=== PATIENT | female | born 1970 | race Caucasian/White ===

== ENCOUNTER 2017-09-27 20:45 | Observation (INO) | payer MEDICARE, OTHER ==
[~2017-09-27] VITALS: Ht 175.3 cm; Wt 95.5 kg
[~2017-09-27 20:45] MED LIST: CEPH-460 PO; CYCL10TA PO; GABA300C5 PO; IBUP1TAB5 PO; OXYC-396 PO; PERC5TAB12 PO; TAMS5CAP PO
[2017-09-27 21:48] VITALS: BP 119/65; PULSE 88; RESP 22; TEMP 97.7; O2SAT 97
[2017-09-27] MEDS ORDERED: SODIUM CHLORIDE 0.9% FLUSH 10 ML FLUSH IV FLUSH PRN (22:45)
[2017-09-27] MEDS ORDERED: ACETAMINOPHEN 500 MG CPLT PO PRN (22:45)
[2017-09-27] MEDS ORDERED: ASPIRIN 81 MG CHEW TAB PO ONE (22:45)
[2017-09-27] MEDS: NITROGLYCERIN 2% OINT 1 GM PACKET TOPICAL SCH (23:00)
[2017-09-27] MEDS: TEMAZEPAM 15 MG CAP PO PRN (23:07)
[2017-09-27] MEDS: MORPHINE SULFATE 4 MG/ML INJ IV PUSH PRN (23:13)
[2017-09-27] MEDS: SODIUM CHLORIDE 0.9% FLUSH 10 ML FLUSH IV FLUSH PRN (23:14)
[2017-09-28] VITALS (8 sets, daily range): BP systolic 100–152; BP diastolic 59–77; PULSE 67–91; RESP 18–20; TEMP 97.7–97.9; O2SAT 95–98
[2017-09-28 03:07] LABS: CREATINE KINASE 126 U/L (26-192)
[2017-09-28 03:19] LABS: CKMB 3.2 NG/ML (0.5-3.6)
[2017-09-28] MEDS: SODIUM CHLORIDE 0.9% FLUSH 10 ML FLUSH IV FLUSH PRN ×2 (03:21→07:35)
[2017-09-28] MEDS: MORPHINE SULFATE 4 MG/ML INJ IV PUSH PRN ×4 (03:21→18:46)
[2017-09-28] MEDS: NITROGLYCERIN 2% OINT 1 GM PACKET TOPICAL SCH (04:06)
[2017-09-28] MEDS: ONDANSETRON HCL 4 MG/2 ML VIAL IV PUSH PRN (07:35)
[2017-09-28] MEDS ORDERED: NITROGLYCERIN 0.4 MG SL 25 TABS/BTL SL PRN (08:15)
[2017-09-28] MEDS: ASPIRIN 325 MG TAB PO SCH (09:00)
--- NOTE | 2017-09-28 10:24 | HHI.HP ---
HPI Primary Care Physician Primary Care Physician Past Family Social History Allergies: Coded Allergies: No Known Allergies (Unverified Allergy, Unknown, 09/27/17) Reported Medications Reported Meds & Active Scripts Active Percocet (Oxycodone-Acetaminophen) 5-325 mg Tab 1 Tab PO Q4H PRN Reported Oxycodone (Oxycodone HCl) 20 Mg Tab 20 Mg PO Q6H PRN Ibuprofen 400 Mg Tab 400 Mg PO BID Flexeril (Cyclobenzaprine HCl) 10 Mg Tab 10 Mg PO TID PRN Gabapentin 300 Mg Cap 300 Mg PO BID Active Ordered Medications Current Medications Medications (Trade) Dose Ordered Sig/Parag Route Start Time Stop Time Status Last Admin (NS Flush) 2 ml UNSCH PRN IV FLUSH 09/27/17 22:45 09/28/17 07:35 (NS Flush) 2 ml UNSCH PRN IV FLUSH 09/27/17 22:45 (Tylenol) 500 mg Q4H PRN PO 09/27/17 22:45 (Morphine Inj) 2 mg Q4H PRN IV PUSH 09/27/17 22:45 09/28/17 07:35 (Zofran Inj) 4 mg Q6H PRN IV PUSH 09/27/17 22:45 09/28/17 07:35 (Restoril) 15 mg HS PRN PO 09/27/17 22:45 09/27/17 23:07 (NS Flush) 2 ml BID IV FLUSH 09/28/17 09:00 (Nitrostat Sl) 0.4 mg Q5M PRN SL 09/28/17 08:15 (Aspirin) 325 mg DAILY PO 09/28/17 09:00 Physical Exam Vital Signs Vital Signs Date Time Temp Pulse Resp B/P (MAP) Pulse Ox O2 Delivery O2 Flow Rate FiO2 09/28/17 09:47 97.7 72 20 119/69 (86) 98 09/28/17 08:00 91 09/28/17 04:24 97.7 67 18 117/60 (79) 96 09/28/17 00:58 91 09/28/17 00:21 97.9 81 18 117/66 (83) 97 09/27/17 21:48 97.7 88 22 119/65 (83) 97 Laboratory Laboratory Tests Test 09/28/17 02:30 Total Creatine Kinase 126 Creatine Kinase MB 3.2 Troponin I LESS THAN 0.02 Caprini VTE Risk Assessment Caprini VTE Risk Assessment: No/Low Risk (score <= 1) Caprini Risk Assessment Model Point Value = 1 Point Value = 2 Point Value = 3 Point Value = 5 Age 41-60 Minor surgery BMI > 25 kg/m2 Swollen legs Varicose veins or History of unexplained or recurrent spontaneous Oral contraceptives or hormone replacement Sepsis (< 1 month) Serious lung disease, including pneumonia (< 1 month) Abnormal pulmonary function Acute myocardial infarction Congestive heart failure (< 1 month) History of inflammatory bowel disease Medical patient at bed rest Age 61-74 Arthroscopic surgery Major open surgery (> 45 min) Laparoscopic surgery (> 45 min) Malignancy Confined to bed (> 72 hours) Immobilizing plaster cast Central venous access Age >= 75 History of VTE Family history of VTE Factor V Leiden Prothrombin [id number] Lupus anticoagulant Anticardiolipin antibodies Elevated serum homocysteine Heparin-induced thrombocytopenia Other congenital or acquired thrombophilia Stroke (< 1 month) Elective arthroplasty Hip, pelvis, or leg fracture Acute spinal cord injury (< 1 month) Prophylaxis Regimen Total Risk Factor Score Risk Level Prophylaxis Regimen 0-1 Low Early ambulation 2 Moderate Order ONE of the following: *Sequential Compression Device (SCD) *Heparin 5000 units SQ BID 3-4 Higher Order ONE of the following medications: *Heparin 5000 units SQ TID *Enoxaparin/Lovenox 40 mg SQ daily (WT < 150 kg, CrCl > 30 mL/min) *Enoxaparin/Lovenox 30 mg SQ daily (WT < 150 kg, CrCl > 10-29 mL/min) *Enoxaparin/Lovenox 30 mg SQ BID (WT < 150 kg, CrCl > 30 mL/min) AND/OR *Sequential Compression Device (SCD) 5 or more Highest Order ONE of the following medications: *Heparin 5000 units SQ TID (Preferred with Epidurals) *Enoxaparin/Lovenox 40 mg SQ daily (WT < 150 kg, CrCl > 30 mL/min) *Enoxaparin/Lovenox 30 mg SQ daily (WT < 150 kg, CrCl > 10-29 mL/min) *Enoxaparin/Lovenox 30 mg SQ BID (WT < 150 kg, CrCl > 30 mL/min) AND *Sequential Compression Device (SCD) Assessment and Plan Assessment and Plan chest pain vaginal bleeding RLQ pain Vickie Garces FIXED INCOME MANAGER Sep 28, 2017 10:24
[2017-09-28] MEDS ORDERED: MORPHINE SULFATE 4 MG/ML INJ IV PUSH ONE (10:45)
--- NOTE | 2017-09-28 13:39 | EKG ---
Date Performed: 09/28/2017 Time Performed: 02:28:48 PTAGE: 47 years EKG: Sinus rhythm NORMAL ECG NO PREVIOUS TRACING DOCTOR: Barrington Hall Interpretating Date/Time 09/28/2017 13:37:34
[2017-09-28] MEDS ORDERED: CYCLOBENZAPRINE HCL 10 MG TAB PO PRN (14:15)
[2017-09-28] MEDS ORDERED: oxyCODONE/ACETAMINOPHEN 5 MG/325 MG TAB PO PRN (14:15)
--- NOTE | 2017-09-28 14:15 | HHI.HP ---
[facility] Service [place] [facility] Primary Care Physician No Primary Care Physician Admission Diagnosis Diagnoses: Chief Complaint: Chest pressure, vaginal bleeding Travel History International Travel<30 Days: No Contact w/Intl Traveler <30 Da: No Traveled to Known Affected Are: No History of Present Illness The patient is a 47-year-old female with past medical history of kidney stones and herniated disks who is presenting to the hospital with chest pressure. She says over the past couple of days she has been expressing chest tightness. She says the episodes have been frequent and denies ever having them before the night before yesterday. She describes the pressure as a squeezing sensation in her chest. She did not have any shortness of breath associated with it. She did endorse some sweating associated with it. She also complains of a stabbing sensation in the left side of her stomach. She does compare the pain to the pain she has had with kidney stones in the past. She says the pain does not radiate anywhere. She has noticed decreased urine output lately. The patient also endorses vaginal bleeding that started the day before yesterday. She says she is menopausal. She has not had vaginal bleeding before. She is currently going through a few pads a day. She has seen clots in the blood. She denies nausea, vomiting or diarrhea. She endorses a 90 pound weight loss over the past year and says that it was unintentional. Review of Systems Except as stated in HPI: all other systems reviewed are Neg Past Family Social History Past Medical History Kidney stones Herniated disks Scoliosis Neuropathy Past Surgical History Cholecystectomy Tubal ligation Allergies: Coded Allergies: No Known Allergies (Unverified Allergy, Unknown, 09/27/17) Active Ordered Medications Current Medications Medications (Trade) Dose Ordered Sig/Parag Route Start Time Stop Time Status Last Admin (NS Flush) 2 ml UNSCH PRN IV FLUSH 09/27/17 22:45 09/28/17 07:35 (Tylenol) 500 mg Q4H PRN PO 09/27/17 22:45 (Morphine Inj) 2 mg Q4H PRN IV PUSH 09/27/17 22:45 09/28/17 07:35 (Zofran Inj) 4 mg Q6H PRN IV PUSH 09/27/17 22:45 09/28/17 07:35 (Restoril) 15 mg HS PRN PO 09/27/17 22:45 09/27/17 23:07 (NS Flush) 2 ml BID IV FLUSH 09/28/17 09:00 (Nitrostat Sl) 0.4 mg Q5M PRN SL 09/28/17 08:15 (Aspirin) 325 mg DAILY PO 09/28/17 09:00 (Flexeril) 10 mg TID PRN PO 09/28/17 14:15 UNV (Neurontin) 300 mg BID PO 09/28/17 21:00 UNV (Percocet 5-325 Mg) 1 tab Q4H PRN PO 09/28/17 14:15 UNV (Percocet 10-325 Mg) 1 tab Q4H PRN PO 09/28/17 14:15 UNV Ceftriaxone Sodium 1000 mg/ Sodium Chloride 100 ml @ 200 mls/hr Q24H IV 09/28/17 14:15 UNV Family History The patient's mother has A. fib. The patient's father passed from heart failure. Social History The patient smokes 7 cigarettes daily. She does not drink or use illicit substances. She says she is currently on disability. Physical Exam Vital Signs Vital Signs Date Time Temp Pulse Resp B/P (MAP) Pulse Ox O2 Delivery O2 Flow Rate FiO2 09/28/17 09:47 97.7 72 20 119/69 (86) 98 09/28/17 08:00 91 09/28/17 04:24 97.7 67 18 117/60 (79) 96 09/28/17 00:58 91 09/28/17 00:21 97.9 81 18 117/66 (83) 97 09/27/17 21:48 97.7 88 22 119/65 (83) 97 Physical Exam GENERAL: This is a well-nourished, well-developed patient, in no apparent distress. SKIN: No rashes, ecchymoses or lesions. Cool and dry. HEAD: Atraumatic. Normocephalic. No temporal or scalp tenderness. EYES: Pupils equal round and reactive. Extraocular motions intact. No scleral icterus. No injection or drainage. ENT: Nose without bleeding, purulent drainage or septal hematoma. Throat without erythema, tonsillar hypertrophy or exudate. Uvula midline. Airway patent. NECK: Trachea midline. No JVD or lymphadenopathy. Supple, nontender, no meningeal signs. CARDIOVASCULAR: Questionable heart murmur. RESPIRATORY: Clear to auscultation. Breath sounds equal bilaterally. No wheezes , rales, or rhonchi. GASTROINTESTINAL: Tender to palpation along the left lower and upper quadrants. MUSCULOSKELETAL: Left CVA tenderness noted. Extremities without clubbing, cyanosis, or edema. No joint tenderness, effusion, or edema noted. NEUROLOGICAL: Awake and alert. Cranial nerves II through XII intact. Motor and sensory grossly within normal limits. Five out of 5 muscle strength in all muscle groups. Normal speech. PSYCH: Mood and affect appropriate. Laboratory Laboratory Tests Test 09/28/17 02:30 Total Creatine Kinase 126 Creatine Kinase MB 3.2 Troponin I LESS THAN 0.02 Caprini VTE Risk Assessment Caprini VTE Risk Assessment: Mod/High Risk (score >= 2) Caprini Risk Assessment Model Point Value = 1 Point Value = 2 Point Value = 3 Point Value = 5 Age 41-60 Minor surgery BMI > 25 kg/m2 Swollen legs Varicose veins or History of unexplained or recurrent spontaneous Oral contraceptives or hormone replacement Sepsis (< 1 month) Serious lung disease, including pneumonia (< 1 month) Abnormal pulmonary function Acute myocardial infarction Congestive heart failure (< 1 month) History of inflammatory bowel disease Medical patient at bed rest Age 61-74 Arthroscopic surgery Major open surgery (> 45 min) Laparoscopic surgery (> 45 min) Malignancy Confined to bed (> 72 hours) Immobilizing plaster cast Central venous access Age >= 75 History of VTE Family history of VTE Factor V Leiden Prothrombin [id number] Lupus anticoagulant Anticardiolipin antibodies Elevated serum homocysteine Heparin-induced thrombocytopenia Other congenital or acquired thrombophilia Stroke (< 1 month) Elective arthroplasty Hip, pelvis, or leg fracture Acute spinal cord injury (< 1 month) Prophylaxis Regimen Total Risk Factor Score Risk Level Prophylaxis Regimen 0-1 Low Early ambulation 2 Moderate Order ONE of the following: *Sequential Compression Device (SCD) *Heparin 5000 units SQ BID 3-4 Higher Order ONE of the following medications: *Heparin 5000 units SQ TID *Enoxaparin/Lovenox 40 mg SQ daily (WT < 150 kg, CrCl > 30 mL/min) *Enoxaparin/Lovenox 30 mg SQ daily (WT < 150 kg, CrCl > 10-29 mL/min) *Enoxaparin/Lovenox 30 mg SQ BID (WT < 150 kg, CrCl > 30 mL/min) AND/OR *Sequential Compression Device (SCD) 5 or more Highest Order ONE of the following medications: *Heparin 5000 units SQ TID (Preferred with Epidurals) *Enoxaparin/Lovenox 40 mg SQ daily (WT < 150 kg, CrCl > 30 mL/min) *Enoxaparin/Lovenox 30 mg SQ daily (WT < 150 kg, CrCl > 10-29 mL/min) *Enoxaparin/Lovenox 30 mg SQ BID (WT < 150 kg, CrCl > 30 mL/min) AND *Sequential Compression Device (SCD) Assessment and Plan Assessment and Plan Chest pressure New onset. EKG with normal sinus rhythm. Troponins flat 3. Heart murmur possibly noted on exam. - Telemetry. - Echocardiogram. - Consider a stress test. - Oxygen as needed. - Check lipid profile and A1c. Vaginal bleeding/ Weight loss The patient is menopausal. She has had vaginal bleeding starting the day prior to admission. She also endorses a 90 pound weight loss over the past year. She smokes so malignancy is a concern. - PRINT ROOM WORKER evaluation pending. - Smoking cessation instruction. - Follow CBC and transfuse as needed. Kidney stones/ UTI/ Abdominal pain The patient has a history of kidney stones. UA indicative of an infection. She has left CVA tenderness and her abdominal pain is similar to prior kidney stone pain. - start IV ceftriaxone. - follow urine culture. - pain control with a bowel regimen. - IVFs. Chronic pain The patient is on pain medication and muscle relaxers as an outpatient. She is currently on disability. - Continue pain medication and muscle relaxers as needed. PPx: SCDs Code Status Full Discussed Condition With Pt, Mehul Appiah DO Sep 28, 2017 14:15
--- NOTE | 2017-09-28 15:34 | PD.CONS ---
HPI Chief Complaint Vaginal bleeding Date Seen: Sep 28, 2017 (Brandi Barajas MD R2) Travel History International Travel<30 Days: No Contact w/Intl Traveler<30Days: No Known Affected Area: No (Brandi Barajas MD R2) History of Present Illness HPI Patient is a 47 y/o female with a past medical history of chronic back pain and recurrent kidney stones that was admitted to the [place] [facility] for chest pain and is reporting a chief complaint of vaginal bleeding of 2 days duration. Patient states that she began noticing blood mixed with urine in the toilet after she urinates and when she wipes. These episodes have occurred continuously for the past 2 days up to 14 times. She is also experiencing pain under her left rib cage and left flank/back tenderness. She has a history of kidney stones and she states that this episode feels like when she had kidney stones but she has never bled like this before. She denies suprapubic pain or pain in her groin. She also denies dysuria. She has no fever or chills and no nausea or vomiting. Patient states that she does not really have appetite for food and has only been eating yogurts. She intentionally decided to lose weight but lost 90 pounds in the last 4 months which is more than she anticipated. Patient states that she went through early menopause starting at age 34 and her periods stopped 4-5 years ago. She had not had any vaginal bleeding until 2 days ago. Patient also states that she has had decreased urine outputs. She does not have the urge to urinate and when she does go, very little urine comes out. (Brandi Barajas MD R2) History Past Medical History Narrative Medical Chronic back pain Chronic left neck and shoulder pain - patient was born with a dislocated shoulder, she states that her left side is smaller than her right Recurrent kidney/ureter stones Obstructive uropathy and recurrent urinary tract infections (Brandi Barajas MD R2) Obstetric History Obstetric History Menarche at age 14 with regular but prolonged and painful periods 2 full-term vaginal deliveries No history of STDs, HPV, cervical biopsies or LEEP procedures Normal smears, last Pap smear was a week ago History of oral contraceptive use until the year 1999 when she had bilateral tubal ligations (Brandi Barajas MD R2) Past Surgical History Narrative Surgical Cholecystectomy in 2007 Bilateral tubal ligation in 1999 Cystocopy and right RPG with stent insertion were performed in November 2015 (Brandi Barajas MD R2) Family History Narrative Family History No history of bleeding disorders in her family History of endometrial cancer Mother has A. fib, father had heart failure (Brandi Barajas MD R2) Social History Alcohol Use: No Tobacco Use: Yes (has smoked less than half pack per day since she was 14 years old) Substance Abuse: No (Brandi Barajas MD R2) Allergies-Medications (Allergen,Severity, Reaction): Coded Allergies: No Known Allergies (Unverified Allergy, Unknown, 09/27/17) Home Meds Active Scripts Pantoprazole (Pantoprazole) 40 Mg Tab, 40 MG PO DAILY for Stomach, #30 TAB Prov:Mehul García DO 09/30/17 Oxycodone-Acetaminophen (Percocet) 5-325 mg Tab, 1 TAB PO Q4H Y for PAIN, #20 TAB 0 Refills Prov:Miquel Troncoso MD 05/12/17 Reported Medications Oxycodone (Oxycodone) 20 Mg Tab, 20 MG PO Q6H Y for PAIN, TAB 0 Refills 09/27/17 Ibuprofen (Ibuprofen) 400 Mg Tab, 400 MG PO BID for Arthritis Pain, TAB 0 Refills 05/12/17 Cyclobenzaprine (Flexeril) 10 Mg Tab, 10 MG PO TID Y for MUSCLE SPASM, #90 TAB 0 Refills 05/12/17 Gabapentin (Gabapentin) 300 Mg Cap, 300 MG PO BID, #60 CAP 0 Refills 05/12/17 Discontinued Scripts Cephalexin (Keflex) 500 Mg Cap, 500 MG PO Q8H for Infection, #21 CAP 0 Refills Prov:Miquel Troncoso MD 05/12/17 Tamsulosin (Flomax) 0.4 Mg Cap, 0.4 MG PO HS for Manage Prostate Problems, #6 CAP 0 Refills Prov:Miquel Troncoso MD 05/12/17 Review of Systems Except as stated in HPI: all other systems reviewed are Neg General / Constitutional: Weight Loss, Other (decreased appetite), No: Fever, Chills Cardiovascular: Chest Pain or Discomfort Respiratory: Short of Breath Gastrointestinal: Abdominal Pain (left upper quadrant), No: Nausea, Vomiting, Diarrhea Genitourinary: Decreased Urinary Output, Vaginal Bleeding Skin: No Rash, Itching (in her back) (EkoBrandi MD R2) Physical Exam Vital Signs Date Time Temp Pulse Resp B/P (MAP) Pulse Ox O2 Delivery O2 Flow Rate FiO2 09/28/17 12:00 97.8 73 20 100/59 (73) 95 09/28/17 09:47 97.7 72 20 119/69 (86) 98 09/28/17 08:00 91 09/28/17 04:24 97.7 67 18 117/60 (79) 96 09/28/17 00:58 91 09/28/17 00:21 97.9 81 18 117/66 (83) 97 09/27/17 21:48 97.7 88 22 119/65 (83) 97 Narrative GENERAL: Well-nourished, well-developed patient. SKIN: Warm and dry. HEAD: Normocephalic and atraumatic. EYES: No scleral icterus. No injection or drainage. ENT: No nasal drainage noted. Mucous membranes pink. Airway patent. NECK: Supple, trachea midline. No JVD. CARDIOVASCULAR: Regular rate and rhythm RESPIRATORY: Breath sounds equal bilaterally. No accessory muscle use. ABDOMEN/GI: Abdomen soft, tender to palpation in the left upper quadrant PELVIC EXAM: Normally developed genitalia with no external lesions or eruptions. Vaginal cordova appear normal. Fresh blood observed in the vaginal vault EXTREMITIES: No cyanosis or edema. BACK: Nontender without obvious deformity. Left CVA tenderness. NEUROLOGICAL: Awake and alert. Motor and sensory grossly within normal limits. Normal speech. (Brandi Barajas MD R2) Data Data Vital Signs Reviewed: Yes Orders Orders Physician Name Changes (09/27/17 ) Sodium Chloride 0.9% Flush (Ns Flush) (09/27/17 22:45) Sodium Chloride 0.9% Flush (Ns Flush) (09/27/17 22:45) Acetaminophen (Tylenol) (09/27/17 22:45) Morphine Inj (Morphine Inj) (09/27/17 22:45) Ondansetron Inj (Zofran Inj) (09/27/17 22:45) Nitroglycerin 2% Oint (Nitroglycerin 2% (09/27/17 23:00) Aspirin Chew (Aspirin Chew) (09/27/17 22:45) Temazepam (Restoril) (09/27/17 22:45) Activity Bed Rest With Brp (09/28/17 00:36) Vital Signs (09/28/17 00:36) Bulldozer Operator / Telemetry ALEXA.QSHIFT (09/28/17 08:00) ^ Other Nursing Orders (09/28/17 00:36) ^ Other Nursing Orders (09/28/17 00:36) ^ Other Nursing Orders (09/28/17 00:36) ^ Other Nursing Orders (09/28/17 00:36) ^ Other Nursing Orders (09/28/17 00:36) ^ Saline Lock (09/28/17 00:36) Ckmb (Isoenzyme) Profile (09/28/17 02:40) Troponin I (09/28/17 02:40) CKMB (09/28/17 02:30) CKMB% (09/28/17 02:30) Electrocardiogram (09/28/17 02:28) Place In Observation (09/28/17 08:02) Vital Signs (Adult) Q4H (09/28/17 08:02) Cardiac Rhythm .As Directed (09/28/17 08:02) Notify Dr: Other .PRN (09/28/17 08:02) Notify Parameters (09/28/17 08:02) Resp Oxygen Nasal Cannula (09/28/17 ) Sodium Chloride 0.9% Flush (Ns Flush) (09/28/17 09:00) Nitroglycerin Sl (Nitrostat Sl) (09/28/17 08:15) Aspirin (Aspirin) (09/28/17 09:00) Vte Prophylaxis Not Indicated (09/28/17 08:02) Morphine Inj (Morphine Inj) (09/28/17 10:45) Hemoglobin (Hgb) (09/28/17 10:27) Hematocrit (Hct) (09/28/17 10:27) Consult Hospitalist (09/28/17 ) (Hub Use Only)Inp Phy Cons/Ref (09/28/17 ) Physician Name Changes (09/28/17 ) Magnesium (Mg) (09/29/17 06:00) Basic Metabolic Panel (Bmp) (09/29/17 06:00) Cbc No Diff, Includes Plts (09/29/17 06:00) Consult Gynecology (09/28/17 ) Diet Regular Basic (09/28/17 Dinner) Cyclobenzaprine (Flexeril) (09/28/17 14:15) Gabapentin (Neurontin) (09/28/17 21:00) Oxycodone-Acetamin 5-325 Mg (Percocet (09/28/17 14:15) Oxycodone-Acetamin 10-325 Mg (Percocet 1 (09/28/17 14:15) Ceftriaxone Inj (Rocephin Inj) (09/28/17 16:00) Echo 2d Comp With Doppler (09/28/17 ) (Hub Use Only)Inp Phy Cons/Ref (09/28/17 ) Docusate Sodium-Senna (Sue-Colace) (09/28/17 21:00) Us Pelvis Comp W Transvaginal (09/28/17 ) Labs Laboratory Tests Test 09/28/17 02:30 Total Creatine Kinase 126 Creatine Kinase MB 3.2 Troponin I LESS THAN 0.02 (Brandi Barajas MD R2) [facility] Medical Record Reviewed: Yes Interpretation(s) 47-year-old female presents with postmenopausal vaginal bleeding of 2 days duration in the setting of long-term smoking and 90 pound weight loss in 4 months which is highly suspicious for malignancy either of vesical or uterine origin. Also considering a vesicovaginal fistula due to her significant history of nephrolithiasis and ureterolithiasis with obstruction. There is no evidence of obstructive kidney or ureteral stones on imaging. However, she is currently being treated with Rocephin IV for a urinary tract infection. Urine cultures are pending. Plan -Speculum exam performed that confirms fresh blood in the vaginal vault -Bimanual exam did not indicate an enlarged uterus or adnexa -Hemodynamically stable: H/H within normal limits on 09/27 at 13.6/41.1 -Continue to monitor hemoglobin and hematocrit per primary team - transfuse as needed -Check TSH due to decreased appetite and weight loss -Transvaginal ultrasound to evaluate uterus and ovaries -Further recommendations pending ultrasound findings -She may need urology consultation Seen and examined with Dr. Bosch and Dr. Jones, PGY-1 Thank you for this consult (Brandi Barajas MD R2) Attending Attestation Patient seen and evaluated with resident under direct supervision, agree with assessment and plan. (Jesus Alberto Bosch MD) Scripts Pantoprazole (Pantoprazole) 40 Mg Tab 40 MG PO DAILY for Stomach, #30 TAB Prov: Mehul García DO 09/30/17 Brnadi Barajas MD R2 Sep 28, 2017 15:34 Jesus Alberto Bosch MD Oct 01, 2017 09:05
[2017-09-28] MEDS ORDERED: cefTRIAXone INJ 1,000 MG in SODIUM CHLORIDE 0.9% INJ 100 ML IV SCH (16:00)
[2017-09-28] MEDS: oxyCODONE/ACETAMINOPHEN 10 MG/325 MG TAB PO PRN ×2 (16:07→21:35)
[2017-09-28] MEDS: SODIUM CHLORIDE 0.9% FLUSH 10 ML FLUSH IV FLUSH SCH ×2 (16:08→21:34)
--- NOTE | 2017-09-28 16:25 | RADRPT ---
EXAM DATE/TIME: 09/28/2017 15:33 [facility] COMPARISON: CT ABDOMEN & PELVIS W/O CONTRAST, September 27, 2017, 15:39. INDICATIONS : Pelvic bleeding. MEDICAL HISTORY : Hernia, hiatal. Renal calculi. Arthritis. Neuropathy. Chest pain. Asthma. GERD. Herniated lumbar disc s. Panic attack. Depression. Anxiety. Tobacco use. SURGICAL HISTORY : Cholecystectomy. Tubal ligation. Multiple lithrotripsies. ENCOUNTER: Initial ACUITY: 1 day PAIN SCORE: 6/10 LOCATION: Bilateral pelvis MEASUREMENTS: UTERUS: 8.6 x 5.8 x 3.9 cm ENDOMETRIAL STRIPE: 9 mm RIGHT OVARY: Non visualized LEFT OVARY: 2.4 x 1.7 x 1.5 cm FINDINGS: UTERUS: Uterus is in a retroflexed position when imaging transvaginally through the posterior fornix. Myometr ium demonstrates no mass. Echogenic areas present within the cervix but no mass is appreciated. RIGHT OVARY: Not visualized. No adnexal mass is seen. LEFT OVARY: Left ovary contains a cyst measuring 13 mm. MISCELLANEOUS: There is trace free fluid in the posterior cul-de-sac. CONCLUSION: 1. No definite abnormality is identified to explain the abnormal bleeding. Endometrium measures 9 mm in thickness. This is normal if the patient is premenopausal. It could be abnormal if the patient is postmenopausal with abnormal bleeding. 2. Trace free fluid in the pelvis. 3. Please note that the right ovary is not visualized. Kristopher Yi MD on September 28, 2017 at 16:20 Board Certified Radiologist. This report was verified electronically.
--- NOTE | 2017-09-28 16:50 | PD.CONS ---
History & Physical H&P Chief Complaint Vaginal bleeding Date Seen: Sep 28, 2017 Travel History International Travel<30 Days: No Contact w/Intl Traveler<30Days: No Known Affected Area: No History of Present Illness HPI Patient is a 47 y/o female with a past medical history of chronic back pain and recurrent kidney stones that was admitted to the [facility] for chest pain and is reporting a chief complaint of vaginal bleeding of 2 days duration. Patient states that she began noticing blood mixed with urine in the toilet after she urinates and when she wipes. These episodes have occurred continuously for the past 2 days up to 14 times. She is also experiencing pain under her left rib cage and left flank/back tenderness. She has a history of kidney stones and she states that this episode feels like when she had kidney stones but she has never bled like this before. She denies suprapubic pain or pain in her groin. She also denies dysuria. She has no fever or chills and no nausea or vomiting. Patient states that she does not really have appetite for food and has only been eating yogurts. She intentionally decided to lose weight but lost 90 pounds in the last 4 months which is more than she anticipated. Patient states that she went through early menopause starting at age 34 and her periods stopped 4-5 years ago. She had not had any vaginal bleeding until 2 days ago. Patient also states that she has had decreased urine outputs. She does not have the urge to urinate and when she does go, very little urine comes out. History Past Medical History Narrative Medical Chronic back pain Chronic left neck and shoulder pain - patient was born with a dislocated shoulder, she states that her left side is smaller than her right Recurrent kidney/ureter stones Obstructive uropathy and recurrent urinary tract infections Obstetric History Obstetric History Menarche at age 14 with regular but prolonged and painful periods 2 full-term vaginal deliveries No history of STDs, HPV, cervical biopsies or LEEP procedures Normal smears, last Pap smear was a week ago History of oral contraceptive use until the year 1999 when she had bilateral tubal ligations Past Surgical History Narrative Surgical Cholecystectomy in 2007 Bilateral tubal ligation in 1999 Cystocopy and right RPG with stent insertion were performed in November 2015 Family History Narrative Family History No history of bleeding disorders in her family History of endometrial cancer Mother has A. fib, father had heart failure Social History Alcohol Use: No Tobacco Use: Yes (has smoked less than half pack per day since she was 14 years old) Substance Abuse: No Allergies-Medications (Allergen,Severity, Reaction): Coded Allergies: No Known Allergies (Unverified Allergy, Unknown, 09/27/17) Home Meds Active Scripts Oxycodone-Acetaminophen (Percocet) 5-325 mg Tab, 1 TAB PO Q4H Y for PAIN, #20 TAB 0 Refills Prov:Miquel Troncoso MD 05/12/17 Reported Medications Oxycodone (Oxycodone) 20 Mg Tab, 20 MG PO Q6H Y for PAIN, TAB 0 Refills 09/27/17 Ibuprofen (Ibuprofen) 400 Mg Tab, 400 MG PO BID for Arthritis Pain, TAB 0 Refills 05/12/17 Cyclobenzaprine (Flexeril) 10 Mg Tab, 10 MG PO TID Y for MUSCLE SPASM, #90 TAB 0 Refills 05/12/17 Gabapentin (Gabapentin) 300 Mg Cap, 300 MG PO BID, #60 CAP 0 Refills 05/12/17 Discontinued Scripts Cephalexin (Keflex) 500 Mg Cap, 500 MG PO Q8H for Infection, #21 CAP 0 Refills Prov:Miquel Troncoso MD 05/12/17 Tamsulosin (Flomax) 0.4 Mg Cap, 0.4 MG PO HS for Manage Prostate Problems, #6 CAP 0 Refills Prov:Miquel Troncoso MD 05/12/17 Review of Systems Except as stated in HPI: all other systems reviewed are Neg General / Constitutional: Weight Loss, Other (decreased appetite), No: Fever, Chills Cardiovascular: Chest Pain or Discomfort Respiratory: Short of Breath Gastrointestinal: Abdominal Pain (left upper quadrant), No: Nausea, Vomiting, Diarrhea Genitourinary: Decreased Urinary Output, Vaginal Bleeding Skin: No Rash, Itching (in her back) Physical Exam Vital Signs Date Time Temp Pulse Resp B/P (MAP) Pulse Ox O2 Delivery O2 Flow Rate FiO2 09/28/17 12:00 97.8 73 20 100/59 (73) 95 09/28/17 09:47 97.7 72 20 119/69 (86) 98 09/28/17 08:00 91 09/28/17 04:24 97.7 67 18 117/60 (79) 96 09/28/17 00:58 91 09/28/17 00:21 97.9 81 18 117/66 (83) 97 09/27/17 21:48 97.7 88 22 119/65 (83) 97 Narrative GENERAL: Well-nourished, well-developed patient. SKIN: Warm and dry. HEAD: Normocephalic and atraumatic. EYES: No scleral icterus. No injection or drainage. ENT: No nasal drainage noted. Mucous membranes pink. Airway patent. NECK: Supple, trachea midline. No JVD. CARDIOVASCULAR: Regular rate and rhythm RESPIRATORY: Breath sounds equal bilaterally. No accessory muscle use. ABDOMEN/GI: Abdomen soft, tender to palpation in the left upper quadrant PELVIC EXAM: Normally developed genitalia with no external lesions or eruptions. Vaginal cordova appear normal. Small amount of fresh blood observed in the vaginal vault EXTREMITIES: No cyanosis or edema. BACK: Nontender without obvious deformity. Left CVA tenderness. NEUROLOGICAL: Awake and alert. Motor and sensory grossly within normal limits. Normal speech. Data Data Vital Signs Reviewed: Yes Orders Orders Physician Name Changes (09/27/17 ) Sodium Chloride 0.9% Flush (Ns Flush) (09/27/17 22:45) Sodium Chloride 0.9% Flush (Ns Flush) (09/27/17 22:45) Acetaminophen (Tylenol) (09/27/17 22:45) Morphine Inj (Morphine Inj) (09/27/17 22:45) Ondansetron Inj (Zofran Inj) (09/27/17 22:45) Nitroglycerin 2% Oint (Nitroglycerin 2% (09/27/17 23:00) Aspirin Chew (Aspirin Chew) (09/27/17 22:45) Temazepam (Restoril) (09/27/17 22:45) Activity Bed Rest With Brp (09/28/17 00:36) Vital Signs (09/28/17 00:36) Internet Database Specialist / Telemetry ALEXA.[email or web address] (09/28/17 08:00) ^ Other Nursing Orders (09/28/17 00:36) ^ Other Nursing Orders (09/28/17 00:36) ^ Other Nursing Orders (09/28/17 00:36) ^ Other Nursing Orders (09/28/17 00:36) ^ Other Nursing Orders (09/28/17 00:36) ^ Saline Lock (09/28/17 00:36) Ckmb (Isoenzyme) Profile (09/28/17 02:40) Troponin I (09/28/17 02:40) CKMB (09/28/17 02:30) CKMB% (09/28/17 02:30) Electrocardiogram (09/28/17 02:28) Place In Observation (09/28/17 08:02) Vital Signs (Adult) Q4H (09/28/17 08:02) Cardiac Rhythm .As Directed (09/28/17 08:02) Notify Dr: Other .PRN (09/28/17 08:02) Notify Parameters (09/28/17 08:02) Resp Oxygen Nasal Cannula (09/28/17 ) Sodium Chloride 0.9% Flush (Ns Flush) (09/28/17 09:00) Nitroglycerin Sl (Nitrostat Sl) (09/28/17 08:15) Aspirin (Aspirin) (09/28/17 09:00) Vte Prophylaxis Not Indicated (09/28/17 08:02) Morphine Inj (Morphine Inj) (09/28/17 10:45) Hemoglobin (Hgb) (09/28/17 10:27) Hematocrit (Hct) (09/28/17 10:27) Consult Hospitalist (09/28/17 ) (Hub Use Only)Inp Phy Cons/Ref (09/28/17 ) Physician Name Changes (09/28/17 ) Magnesium (Mg) (09/29/17 06:00) Basic Metabolic Panel (Bmp) (09/29/17 06:00) Cbc No Diff, Includes Plts (09/29/17 06:00) Consult Gynecology (09/28/17 ) Diet Regular Basic (09/28/17 Dinner) Cyclobenzaprine (Flexeril) (09/28/17 14:15) Gabapentin (Neurontin) (09/28/17 21:00) Oxycodone-Acetamin 5-325 Mg (Percocet (09/28/17 14:15) Oxycodone-Acetamin 10-325 Mg (Percocet 1 (09/28/17 14:15) Ceftriaxone Inj (Rocephin Inj) (09/28/17 16:00) Echo 2d Comp With Doppler (09/28/17 ) (Hub Use Only)Inp Phy Cons/Ref (09/28/17 ) Docusate Sodium-Senna (Sue-Colace) (09/28/17 21:00) Us Pelvis Comp W Transvaginal (09/28/17 ) Labs Laboratory Tests Test 09/28/17 02:30 Total Creatine Kinase 126 Creatine Kinase MB 3.2 Troponin I LESS THAN 0.02 MDM Medical Record Reviewed: Yes Interpretation(s) 47-year-old female presents with postmenopausal vaginal bleeding of 2 days duration in the setting of long-term smoking and 90 pound weight loss in 4 months which is highly suspicious for malignancy either of vesical or uterine origin. However, CT abdomen/pelvis performed on 09/27/17 showed reproductive organs that are within normal limits which is reassuring. A vesicovaginal fistula is in the differential due to her significant history of nephrolithiasis and ureterolithiasis with obstruction, although there is no evidence of obstructive kidney or ureteral stones on recent imaging. She is currently being treated with Rocephin IV for a urinary tract infection. Urine cultures are pending. Plan -Speculum exam performed that confirms fresh blood in the vaginal vault but small amount which is not hemodynamically significant: H/H within normal limits on 09/27 at 13.6/41.1 -Bimanual exam did not indicate an enlarged uterus or adnexa -Continue to monitor hemoglobin and hematocrit per primary team - transfuse as needed -Check TSH due to decreased appetite and weight loss -Transvaginal ultrasound to evaluate uterus and ovaries -Recommend outpatient follow up with primary care physician for endometrial biopsy -Also recommend out-patient follow-up with urology Seen and examined with Dr. Bosch and Dr. Jones, PGY-1 Thank you for this consult. OBGYN will sign off. Re-consult with further questions Brandi Barajas MD R2 Sep 28, 2017 16:50
[2017-09-28 17:24] LABS: HEMATOCRIT 39.7 % (35.0-46.0)
[2017-09-28] MEDS: DOCUSATE SODIUM 50 MG/SENNA 8.6 MG TAB PO SCH (21:36)
[2017-09-28] MEDS: GABAPENTIN 300 MG CAP PO SCH (21:36)
[2017-09-29] VITALS (10 sets, daily range): BP systolic 109–137; BP diastolic 60–88; PULSE 65–87; RESP 16–18; TEMP 97.9–98.9; O2SAT 95–100
[2017-09-29] MEDS: MORPHINE SULFATE 4 MG/ML INJ IV PUSH PRN ×4 (00:03→18:44)
[2017-09-29] MEDS: oxyCODONE/ACETAMINOPHEN 10 MG/325 MG TAB PO PRN ×4 (06:34→21:40)
[2017-09-29 07:52] LABS: HEMATOCRIT 39.1 % (35.0-46.0); MEAN CELL VOLUME 88.3 FL (80.0-100.0); MEAN CORPUSCULAR HEMOGLOBIN 30.2 PG (27.0-34.0); MEAN CORPUSCULAR HGB CONC 34.2 % (32.0-36.0); PLATELET COUNT 188 TH/MM3 (150-450); RED BLOOD COUNT 4.43 MIL/MM3 (4.00-5.30); RED CELL DISTRIBUTION WIDTH 13.4 % (11.6-17.2); REVIEW FLAG FINAL; WHITE BLOOD COUNT 5.6 TH/MM3 (4.0-11.0)
[2017-09-29 08:18] LABS: BICARBONATE 25.8 MEQ/L (21.0-32.0); MAGNESIUM 1.8 MG/DL (1.5-2.5)
[2017-09-29] MEDS: DOCUSATE SODIUM 50 MG/SENNA 8.6 MG TAB PO SCH ×2 (08:36→21:40)
[2017-09-29] MEDS: ASPIRIN 325 MG TAB PO SCH (08:36)
[2017-09-29] MEDS: GABAPENTIN 300 MG CAP PO SCH ×2 (08:36→21:40)
[2017-09-29] MEDS: SODIUM CHLORIDE 0.9% FLUSH 10 ML FLUSH IV FLUSH SCH ×2 (08:36→21:40)
--- NOTE | 2017-09-29 13:01 | HHI.PR ---
Subjective Remarks The patient continued to complain of left sided abdominal/flank pain. She also had persistent chest tightness. She does not have much of an appetite. Still complains of vaginal bleeding. Her sister was at the bedside. Objective Vitals Vital Signs Date Time Temp Pulse Resp B/P (MAP) Pulse Ox O2 Delivery O2 Flow Rate FiO2 09/29/17 11:36 98.0 74 18 109/70 (83) 96 09/29/17 08:00 80 09/29/17 07:55 98.1 77 18 137/82 (100) 98 09/29/17 04:14 98.2 65 17 115/71 (86) 95 09/29/17 04:06 65 09/29/17 00:04 98.4 69 17 117/60 (79) 97 09/28/17 22:00 71 09/28/17 16:00 97.9 74 20 152/77 (102) 98 I/O 09/28/17 09/28/17 09/28/17 09/29/17 09/29/17 09/29/17 07:00 15:00 23:00 07:00 15:00 23:00 Intake Total 1480 ml 400 ml Output Total 900 ml Balance 580 ml 400 ml Intake Oral 1280 ml 400 ml IV Total 200 ml Output Urine Total 900 ml # Voids 1 3 2 # Sanitary Pads 1 Pads Result Diagram: 09/29/17 0645 09/29/17 0645 Imaging Last Impressions Pelvis Ultrasound 09/28/17 0000 Signed Impressions: Service Date/Time: Thursday, September 28, 2017 15:33 - CONCLUSION: 1. No definite abnormality is identified to explain the abnormal bleeding. Endometrium measures 9 mm in thickness. This is normal if the patient is premenopausal. It could be abnormal if the patient is postmenopausal with abnormal bleeding. 2. Trace free fluid in the pelvis. 3. Please note that the right ovary is not visualized. Kristopher Yi MD Objective Remarks GENERAL: This is a well-nourished, well-developed patient, in no apparent distress. SKIN: No rashes, ecchymoses or lesions. Cool and dry. HEAD: Atraumatic. Normocephalic. No temporal or scalp tenderness. EYES: Pupils equal round and reactive. Extraocular motions intact. No scleral icterus. No injection or drainage. ENT: Nose without bleeding, purulent drainage or septal hematoma. Throat without erythema, tonsillar hypertrophy or exudate. Uvula midline. Airway patent. NECK: Trachea midline. No JVD or lymphadenopathy. Supple, nontender, no meningeal signs. CARDIOVASCULAR: Questionable heart murmur. RESPIRATORY: Clear to auscultation. Breath sounds equal bilaterally. No wheezes , rales, or rhonchi. GASTROINTESTINAL: Tender to palpation along the left lower and upper quadrants. MUSCULOSKELETAL: Left CVA tenderness noted. Extremities without clubbing, cyanosis, or edema. No joint tenderness, effusion, or edema noted. NEUROLOGICAL: Awake and alert. Cranial nerves II through XII intact. Motor and sensory grossly within normal limits. Five out of 5 muscle strength in all muscle groups. Normal speech. PSYCH: Mood and affect appropriate. Medications and IVs Current Medications Medications (Trade) Dose Ordered Sig/Parag Route Start Time Stop Time Status Last Admin (NS Flush) 2 ml UNSCH PRN IV FLUSH 09/27/17 22:45 09/28/17 07:35 (Tylenol) 500 mg Q4H PRN PO 09/27/17 22:45 (Morphine Inj) 2 mg Q4H PRN IV PUSH 09/27/17 22:45 09/29/17 08:33 (Zofran Inj) 4 mg Q6H PRN IV PUSH 09/27/17 22:45 09/28/17 07:35 (Restoril) 15 mg HS PRN PO 09/27/17 22:45 09/27/17 23:07 (NS Flush) 2 ml BID IV FLUSH 09/28/17 09:00 09/29/17 08:36 (Nitrostat Sl) 0.4 mg Q5M PRN SL 09/28/17 08:15 (Aspirin) 325 mg DAILY PO 09/28/17 09:00 09/29/17 08:36 (Flexeril) 10 mg TID PRN PO 09/28/17 14:15 09/28/17 16:08 (Neurontin) 300 mg BID PO 09/28/17 21:00 09/29/17 08:36 (Percocet 5-325 Mg) 1 tab Q4H PRN PO 09/28/17 14:15 (Percocet 10-325 Mg) 1 tab Q4H PRN PO 09/28/17 14:15 09/29/17 12:05 (Sue-Colace) 1 tab BID PO 09/28/17 21:00 09/29/17 08:36 A/P Assessment and Plan Chest pressure New onset. EKG with normal sinus rhythm. Troponins flat 3. Heart murmur possibly noted on exam. - Telemetry. - Echocardiogram. - Exercise stress test in the morning. - Oxygen as needed. - Check lipid profile. Vaginal bleeding/ Weight loss The patient is menopausal. She has had vaginal bleeding starting the day prior to admission. She also endorses a 90 pound weight loss over the past year. She smokes so malignancy is a concern. CERTIFIED WELLNESS PROGRAM COORDINATOR evaluation appreciated. Pelvic US without any acute findings. - Smoking cessation instruction. - Follow CBC and transfuse as needed. - outpt OBGYN follow-up. Kidney stones/ UTI/ Abdominal pain The patient has a history of kidney stones. UA indicative of an infection. She has left CVA tenderness and her abdominal pain is similar to prior kidney stone pain. Urine culture with likely contaminants. CT with multiple kidney stones. - pain control with a bowel regimen. - IVFs. - urology consult requested. Chronic pain The patient is on pain medication and muscle relaxers as an outpatient. She is currently on disability. - Continue pain medication and muscle relaxers as needed. PPx: SCDs Discharge Planning Awaiting urology evaluation and stress test Mehul García DO Sep 29, 2017 13:01
--- NOTE | 2017-09-29 15:44 | MB ---
cc: BECKY PINA DATE OF CONSULTATION: 09/29/2017. HISTORY OF PRESENT ILLNESS: Ms. Sheehan is a pleasant 47-year-old female who was admitted with some chest pain / tightness and some abdominal pain with some evidence of vaginal bleeding mixed with possible hematuria. The patient has had a long history of nephrolithiasis and has had multiple lithotripsies with stents and ureteroscopy for stone removal. She states she is having right-sided abdominal pain but did not admit to any flank pain. She does have a history of chronic back pain and had a herniated disk in the past. She denies any nausea, vomiting or fever and chills. She denies any urinary tract infections. PAST MEDICAL HISTORY: Her medical history includes: 1. History of nephrolithiasis. 2. Chronic back pain with history of herniated disc. 3. Scoliosis. 4. Neuropathy. PAST SURGICAL HISTORY: 1. Cholecystectomy. 2. Tubal ligation. 3. Lithotripsy. 4. Extracorporeal shock wave lithotripsy. ALLERGIES: SHE HAS NO KNOWN DRUG ALLERGIES. MEDICATIONS: Please refer to the chart. SOCIAL HISTORY: She smokes seven cigarettes a day. She does not drink or use drugs. FAMILY HISTORY: Noted for atrial fibrillation and heart failure. REVIEW OF SYSTEMS: She notes abdominal pain, some chest tightness, vaginal bleeding. Denies any fever or chills. Denies gait disturbances. Denies bleeding disorders. Denies any skin lesions. The remaining review of systems were reviewed and are negative. PHYSICAL EXAMINATION: VITAL SIGNS: Temperature is 98, heart rate 74, respirations 109/70. GENERAL: She is a well-developed, well-nourished 47-year-old female no acute distress. HEAD, EYES, EARS, NOSE, THROAT: Normocephalic and atraumatic. Pupils equal, round and reactive to light. Extraocular muscles intact. NECK: The neck is supple. HEART: Regular rate and rhythm. LUNGS: Clear. ABDOMEN: The abdomen is soft, nontender and nondistended. EXTREMITIES: No evidence of cyanosis, clubbing or edema. BACK: There is no costovertebral angle tenderness. There is some left-sided abdominal pain but there is no rebound or guarding. LABORATORY STUDIES: White count 5.6, hemoglobin 13.4, hematocrit 39.1, platelet count of 188,000. Sodium 139, potassium 4.0, chloride 106, carbon dioxide 25.8, BUN of 16, creatinine 0.9, glucose of 73. IMAGING STUDIES: Abdomen CT shows atrophic left kidney with bilateral nephrolithiasis. No evidence of hydronephrosis or evidence of obstruction identified. No ureteral stones are identified. Stable atrophic left kidney. ASSESSMENT: This is a 47-year-old female with history of nephrolithiasis and with bilateral nonobstructing renal calculi and an atrophic left kidney. The right kidney shows the largest stone being 6 mm in size in the right lower pole. Microhematuria noted on recent urinalysis with evidence of vaginal bleeding. RECOMMENDATIONS: 1. Recommend follow-up as an outpatient to treat her right renal calculi which is nonobstructing. 2. Will repeat the urinalysis in six weeks to determine if microhematuria is still present. 3. No intervention required at this time. Thank you for the consult and for allowing me to participate in the care of this patient. Becky BISWAS/JENNIFER /2:37 PM /3:23 PM
[2017-09-29] MEDS: PANTOPRAZOLE SOD 40 MG DELAYED RELEASE TAB PO SCH (17:07)
--- NOTE | 2017-09-29 17:34 | ECHRPT ---
Indication: Chest Pain CONCLUSIONS The left ventricular systolic function is normal with an estimated ejection fraction in the range of 60-65%. Normal left ventricular size. Wall thickness is normal. No regional wall motion abnormalities are present. Trace mitral valve regurgitation. Pulmonary arterial systolic pressure could not be estimated due to an insufficient tricuspid valve regurgitation doppler jet for measurement. BP: / HR: Rhythm: MEASUREMENTS (Male / Female) Normal Values Technical Quality: 2D ECHO LV Ejection Fraction MOD 4C 69.1 % LV Ejection Fraction 4C AL 68.4 % M-MODE LV Diastolic Diameter MM 7.8 cm 4.2 - 5.9 / 3.9 - 5.3 cm LV Systolic Diameter MM 4.9 cm LV Ejection Fraction MM Teich 64.2 % IVS Diastolic Thickness MM 1.1 cm 0.6 - 1.0 / 0.6 - 0.9 cm LVPW Diastolic Thickness MM 1.1 cm 0.6 - 1.0 / 0.6 - 0.9 cm LV Relative Wall Thickness MM 0.3 0.24 - 0.42 / 0.22 - 0.42 LV Mass Index MM 203.3 g/m 49 - 115 / 43 - 95 g/m Aortic Root Diameter MM 3.8 cm AV Cusp Separation MM 1.9 cm DOPPLER AV Peak Velocity 171.0 cm/s AV Peak Gradient 11.7 mmHg LVOT Peak Velocity 161.0 cm/s LVOT Peak Gradient 10.4 mmHg MV Area PHT 3.5 cm Mitral E Point Velocity 92.3 cm/s Mitral A Point Velocity 58.2 cm/s Mitral E to A Ratio 1.6 LV E' Lateral Velocity 11.6 cm/s Mitral E to LV E' Lateral Ratio 8.0 LV E' Septal Velocity 8.7 cm/s Mitral E to LV E' Septal Ratio 10.6 FINDINGS LEFT VENTRICLE The left ventricular systolic function is normal with an estimated ejection fraction in the range of 60-65%. Normal left ventricular size. Wall thickness is normal. No regional wall motion abnormalities are present. RIGHT VENTRICLE Normal right ventricular size and systolic function. LEFT ATRIUM The left atrial size is normal. RIGHT ATRIUM The right atrial size is normal. ATRIAL SEPTUM Normal atrial septal thickness without atrial level shunting by limited color doppler interrogation. AORTA The aortic root and proximal ascending aorta are normal in size on limited imaging. MITRAL VALVE Structurally normal mitral valve. Trace mitral valve regurgitation. AORTIC VALVE Trileaflet aortic valve. No aortic valve stenosis or regurgitation. TRICUSPID VALVE Structurally normal tricuspid valve. No tricuspid valve stenosis or regurgitation. Pulmonary arterial systolic pressure could not be estimated due to an insufficient tricuspid valve regurgitation doppler jet for measurement. PULMONARY VALVE The pulmonary valve is not well visualized. VESSELS The inferior vena cava is normal in size. PERICARDIUM No pericardial effusion. Jesus Alberto Hamilton MD, FACC (Electronically Signed) Final Date:29 September 2017 17:32
[2017-09-29 18:55] LABS: HDL CHOLESTEROL 31.3 MG/DL (40.0-60.0)
[2017-09-29] MEDS: TEMAZEPAM 15 MG CAP PO PRN (21:44)
[2017-09-30] VITALS: PULSE 72
[2017-09-30] MEDS: oxyCODONE/ACETAMINOPHEN 10 MG/325 MG TAB PO PRN ×3 (02:12→13:20)
[2017-09-30 03:44] VITALS: BP 119/72; PULSE 71; RESP 16; TEMP 98.3; O2SAT 98
[2017-09-30 04:00] VITALS: PULSE 77
[2017-09-30] MEDS: PANTOPRAZOLE SOD 40 MG DELAYED RELEASE TAB PO SCH (08:13)
[2017-09-30] MEDS: ASPIRIN 325 MG TAB PO SCH (08:13)
[2017-09-30] MEDS: DOCUSATE SODIUM 50 MG/SENNA 8.6 MG TAB PO SCH (08:13)
[2017-09-30] MEDS: SODIUM CHLORIDE 0.9% FLUSH 10 ML FLUSH IV FLUSH SCH (08:14)
[2017-09-30] MEDS: GABAPENTIN 300 MG CAP PO SCH (08:14)
[2017-09-30 08:15] VITALS: BP 106/79; PULSE 77; RESP 17; TEMP 97.3; O2SAT 99
[2017-09-30 09:00] VITALS: PULSE 74
[2017-09-30] MEDS: ONDANSETRON HCL 4 MG/2 ML VIAL IV PUSH PRN (09:10)
[2017-09-30] MEDS: MORPHINE SULFATE 4 MG/ML INJ IV PUSH PRN (09:13)
[2017-09-30 11:35] VITALS: BP 96/62; PULSE 66; RESP 16; TEMP 97.8; O2SAT 98
[2017-09-30] MEDS ORDERED: REGADENOSON INJ 0.4 MG/5 ML SYR ONE (12:06)
--- NOTE | 2017-09-30 13:16 | RADRPT ---
EXAM DATE/TIME: 09/30/2017 12:02 This report includes an Addendum and supersedes previous reports for this exam. [facility] COMPARISON: No previous studies available for comparison. INDICATIONS : Mid chest pain for one day. Angina. DOSE: 26.1 mCi Tc99m Myoview at stress. 8.7 mCi Tc99m Myoview at rest. 0.4 mg Lexiscan STRESS SYMPTOMS: Shortness of breath. EJECTION FRACTION: 68% MEDICAL HISTORY : Asthma. Nephrolithiasis. SURGICAL HISTORY : Tubal ligation. Cholecystectomy. ENCOUNTER: Initial ACUITY: 1 day PAIN SCALE: 8/10 LOCATION: Midsternal chest TECHNIQUE: The patient underwent pharmacologic stress with infusion of prescribed dose. Continuous ECG tracing was monitored during stress. Gated SPECT imaging was performed after stress and conventional SPECT i maging was performed at rest. The examination was performed on a SPECT/CT scanner, both attenuation and non-corrected datasets were reviewed. FINDINGS: DISTRIBUTION: The maximum perfused segment at stress is in the lateral wall. PERFUSION STUDY: There is a broad area of fixed perfusion deficit of the apex, anterior wall and septum. This becomes slightly larger during stress. GATED STUDY: Overall ejection fraction is within normal limits but there is focal paradoxical motion and systolic bulging of the anterior apex. CONCLUSION: 1. 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 2. Paradoxical motion and apparent focal aneurysmal bulging of the left ventricle anterior apex. Over all left ventricular ejection fraction is within normal limits. RISK CATEGORY: High Kristopher Nevarez MD on September 30, 2017 at 13:12 Board Certified Radiologist. This report was verified electronically. ADDENDUM: The examination was reviewed with the attending bench repair technician. On the non-a.c. images does not appear to be a significant change from the stress to rest images involving the anteroseptal region to indica te definite ischemic changes. Therefore, this needs to be correlated with patient's physical, clinica l exam and laboratory values. Jeyson Toth MD on September 30, 2017 at 14:58 Board Certified Radiologist. This report was verified electronically.
[2017-09-30] MEDS ORDERED: PANT40TA3 PO (15:22)
--- NOTE | 2017-09-30 15:23 | HHI.DCPOC ---
Discharge Care Plan Diagnosis: (1) Left upper quadrant abdominal pain of unknown etiology (2) Chest pressure (3) Post-menopausal bleeding (4) Kidney stones Goals to Promote Your Health * To prevent worsening of your condition and complications * To maintain your health at the optimal level Directions to Meet Your Goals Take your medications as prescribed Follow your dietary instruction Follow activity as directed Keep your appointments as scheduled Take your immunizations and boosters as scheduled If your symptoms worsen call your PCP, if no PCP go to Urgent Care Center or Emergency Room Smoking is Dangerous to Your Health. Avoid second hand smoke Call the 24-hour hour crisis hotline for domestic abuse at Mehul García DO Sep 30, 2017 15:23
--- NOTE | 2017-09-30 15:25 | HHI.DS ---
Discharge Summary Admission Date Sep 27, 2017 at 20:55 Discharge Date: Sep 30, 2017 Admitting Diagnosis (1) Left upper quadrant abdominal pain of unknown etiology ICD Code: R10.12 - Left upper quadrant pain Diagnosis: Principal (2) Chest pressure ICD Code: R07.89 - Other chest pain Diagnosis: Principal (3) Post-menopausal bleeding ICD Code: N95.0 - Postmenopausal bleeding Diagnosis: Principal (4) Kidney stones ICD Code: N20.0 - Calculus of kidney Diagnosis: Principal Status: Chronic Procedures None Brief History - From Admission The patient is a 47-year-old female with past medical history of kidney stones and herniated disks who is presenting to the hospital with chest pressure. She says over the past couple of days she has been expressing chest tightness. She says the episodes have been frequent and denies ever having them before the night before yesterday. She describes the pressure as a squeezing sensation in her chest. She did not have any shortness of breath associated with it. She did endorse some sweating associated with it. She also complains of a stabbing sensation in the left side of her stomach. She does compare the pain to the pain she has had with kidney stones in the past. She says the pain does not radiate anywhere. She has noticed decreased urine output lately. The patient also endorses vaginal bleeding that started the day before yesterday. She says she is menopausal. She has not had vaginal bleeding before. She is currently going through a few pads a day. She has seen clots in the blood. She denies nausea, vomiting or diarrhea. She endorses a 90 pound weight loss over the past year and says that it was unintentional. CBC/BMP: 09/29/17 0645 09/29/17 0645 Significant Findings Laboratory Tests Test 09/28/17 02:30 09/28/17 16:41 09/29/17 06:45 Troponin I LESS THAN 0.02 NG/ML Cholesterol Level 84 MG/DL (120-200) HDL Cholesterol 31.3 MG/DL (40.0-60.0) Random Glucose 73 MG/DL (74-106) Estimat Glomerular Filtration Rate 67 ML/MIN (>89) Imaging Last Impressions Myocardial Perfusion Scan Nuc Med 09/30/17 0000 Signed Impressions: Service Date/Time: Saturday, September 30, 2017 12:02 - CONCLUSION: 1. 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 2. Paradoxical motion and apparent focal aneurysmal bulging of the left ventricle anterior apex. Overall left ventricular ejection fraction is within normal limits. RISK CATEGORY: High Kristopher Nevarez MD ADDENDUM: The examination was reviewed with the attending neon sign installer. On the non-a.c. images does not appear to be a significant change from the stress to rest images involving the anteroseptal region to indicate definite ischemic changes. Therefore, this needs to be correlated with patient's physical, clinical exam and laboratory values. Jeyson Toth MD Pelvis Ultrasound 09/28/17 0000 Signed Impressions: Service Date/Time: Thursday, September 28, 2017 15:33 - CONCLUSION: 1. No definite abnormality is identified to explain the abnormal bleeding. Endometrium measures 9 mm in thickness. This is normal if the patient is premenopausal. It could be abnormal if the patient is postmenopausal with abnormal bleeding. 2. Trace free fluid in the pelvis. 3. Please note that the right ovary is not visualized. Kristopher Yi MD PE at Discharge GENERAL: This is a well-nourished, well-developed patient, in no apparent distress. SKIN: No rashes, ecchymoses or lesions. Cool and dry. HEAD: Atraumatic. Normocephalic. No temporal or scalp tenderness. EYES: Pupils equal round and reactive. Extraocular motions intact. No scleral icterus. No injection or drainage. ENT: Nose without bleeding, purulent drainage or septal hematoma. Throat without erythema, tonsillar hypertrophy or exudate. Uvula midline. Airway patent. NECK: Trachea midline. No JVD or lymphadenopathy. Supple, nontender, no meningeal signs. CARDIOVASCULAR: Questionable heart murmur. RESPIRATORY: Clear to auscultation. Breath sounds equal bilaterally. No wheezes , rales, or rhonchi. GASTROINTESTINAL: Tender to palpation along the left lower and upper quadrants. MUSCULOSKELETAL: Left CVA tenderness noted. Extremities without clubbing, cyanosis, or edema. No joint tenderness, effusion, or edema noted. NEUROLOGICAL: Awake and alert. Cranial nerves II through XII intact. Motor and sensory grossly within normal limits. Five out of 5 muscle strength in all muscle groups. Normal speech. PSYCH: Mood and affect appropriate. Pt update on day of discharge The patient was hoping to go home. She complained of left upper quadrant pain. She said she was still having vaginal bleeding. She said she talked with the urologist. She said she will follow-up with her [facility]. Discussed with nursing. Hospital Course Chest pressure New onset. EKG with normal sinus rhythm. Troponins flat 3. She was monitored on telemetry. Echocardiogram with normal ejection fraction. LDL was 40. Nuclear stress test was originally read as abnormal, however, upon review with radiology there was no obvious ischemia. The stress test also revealed possible focal aneurysmal bulging, however, on echocardiogram no such bulging was noted. The patient does endorse significant anxiety and will need to follow up with her primary care doctor. Vaginal bleeding/ Weight loss The patient is menopausal. She has had vaginal bleeding starting the day prior to admission. She also endorses a 90 pound weight loss over the past year. She smokes so malignancy was a concern. [facility] was consulted. Pelvic US without any acute findings except for endometrial thickness of 9 mm. She received smoking cessation instruction. Her hemoglobin was stable. She will follow up with [facility] for possible endometrial biopsy. Kidney stones/ UTI/ Abdominal pain The patient has a history of kidney stones. UA indicative of an infection. She has left CVA tenderness and her abdominal pain is similar to prior kidney stone pain. Urine culture with likely contaminants. CT with multiple kidney stones. Urology consultation appreciated. She received pain control with a bowel regimen and IVFs. She'll follow-up with urology as an outpatient. The patient was started on a PPI. Chronic pain The patient is on pain medication and muscle relaxers as an outpatient. She is currently on disability. She will continue pain medication and muscle relaxers as needed. Pt Condition on Discharge: Stable Discharge Disposition: Discharge Home Discharge Time: > 30 minutes Discharge Instructions DIET: Follow Instructions for: Heart Healthy Diet Activities you can perform: Weight Bearing as Lio Follow up Referrals: [facility] - 1 Week PCP Follow-up - 1 Week Urology - 2 Weeks New Medications: Pantoprazole (Pantoprazole) 40 Mg Tab 40 MG PO DAILY for Stomach, #30 TAB Continued Medications: Cyclobenzaprine (Flexeril) 10 Mg Tab 10 MG PO TID PRN for MUSCLE SPASM, #90 TAB 0 Refills Gabapentin (Gabapentin) 300 Mg Cap 300 MG PO BID, #60 CAP 0 Refills Ibuprofen (Ibuprofen) 400 Mg Tab 400 MG PO BID for Arthritis Pain, TAB 0 Refills Oxycodone (Oxycodone) 20 Mg Tab 20 MG PO Q6H PRN for PAIN, TAB 0 Refills Oxycodone-Acetaminophen (Percocet) 5-325 mg Tab 1 TAB PO Q4H PRN for PAIN, #20 TAB 0 Refills Mehul García DO Sep 30, 2017 15:25
[2017-09-30] MEDS ORDERED: oxyCODONE/ACETAMINOPHEN 5 MG/325 MG TAB PO ONE (15:30)
== END 2017-09-30 16:45 | disposition home or self-care (01) ==
LOC: NEDDLT 20:45 → NEPHCDU 20:55
PROVIDERS: ADMIT Hospitalist; ATTEND Hospitalist
DX: R07.89 Other chest pain (principal); N93.9 Abnormal uterine and vaginal bleeding, unspecified; N39.0 Urinary tract infection, site not specified; R10.31 Right lower quadrant pain; R00.1 Bradycardia, unspecified; M54.2 Cervicalgia; M25.519 Pain in unspecified shoulder; N95.0 Postmenopausal bleeding; N20.0 Calculus of kidney; R63.4 Abnormal weight loss; M41.9 Scoliosis, unspecified; J45.909 Unspecified asthma, uncomplicated; K21.9 Gastro-esophageal reflux disease without esophagitis; F41.9 Anxiety disorder, unspecified; G62.9 Polyneuropathy, unspecified; F32.9 Major depressive disorder, single episode, unspecified; G89.29 Other chronic pain; F17.210 Nicotine dependence, cigarettes, uncomplicated; Z79.899 Other long term (current) drug therapy; Z87.442 Personal history of urinary calculi
CPT/HCPCS: 71010; 71275; 74176; 76830; 76856; 78452; 80048; 80061; 81001; 82550; 82552; 83735; 84443; 84484; 85014; 85018; 85025; 85027; 85610; 85730; 87086; 93005; 93017; 93306; 96365; 96374; 96375; 96376; 99285; A9502; G0378; J0696; J1170; J1885; J2060; J2270; J2405; J2765; J2785; Q9967

== ENCOUNTER 2018-02-04 22:41 | Observation (INO) | payer MEDICARE, MEDICAID ==
[~2018-02-04] VITALS: Ht 172.7 cm; Wt 100.0 kg
[2018-02-04] MEDS: SODIUM CHLORIDE 0.9% FLUSH 10 ML FLUSH IV FLUSH SCH (21:00)
[~2018-02-04 22:41] MED LIST changes: +ACETAMINOPHEN 325 MG TAB PO PRN; -CEPH-460 PO; +NALOXONE HCL 0.4 MG/ML AMP IV PUSH PRN; +ONDANSETRON HCL 4 MG/2 ML VIAL IVP PRN; +PANT40TA3 PO; +SODIUM CHLORIDE 0.9% FLUSH 10 ML FLUSH IV FLUSH PRN; -TAMS5CAP PO
[2018-02-04] MEDS: SODIUM CHLOR 0.9% 1000 ML INJ 1,000 ML IV SCH (23:16)
[2018-02-04] MEDS: MORPHINE SULFATE 2 MG/ML SYRINGE IV PUSH PRN (23:32)
[2018-02-05] VITALS: BP 113/73; PULSE 75; RESP 20; TEMP 97.1; O2SAT 97
[2018-02-05] MEDS: MORPHINE SULFATE 2 MG/ML SYRINGE IV PUSH PRN ×2 (04:12→07:43)
[2018-02-05 06:55] LABS: BICARBONATE 26.6 MEQ/L (21.0-32.0); CALCIUM 9.4 MG/DL (8.5-10.1)
[2018-02-05 06:56] LABS: BASOPHIL % 0.5 % (0.0-2.0); EOSINOPHIL # 0.1 TH/MM3 (0-0.4); EOSINOPHIL % 1.1 % (0.0-4.0); HEMATOCRIT 34.5 % (35.0-46.0); HEMOGLOBIN 11.7 GM/DL (11.6-15.3); LYMPH % 24.3 % (9.0-44.0); LYMPHOCYTE # 1.5 TH/MM3 (1.0-4.8); MEAN CELL VOLUME 86.3 FL (80.0-100.0); MEAN CORPUSCULAR HEMOGLOBIN 29.3 PG (27.0-34.0); MEAN PLATELET VOLUME 9.3 FL (7.0-11.0); MONO % 7.7 % (0.0-8.0); MONOCYTE # 0.5 TH/MM3 (0-0.9); NEUT % 66.4 % (16.0-70.0); PLATELET COUNT 185 TH/MM3 (150-450); RED CELL DISTRIBUTION WIDTH 13.1 % (11.6-17.2); WHITE BLOOD COUNT 6.1 TH/MM3 (4.0-11.0)
[2018-02-05 06:59] LABS: CREATININE 1.2 MG/DL (0.50-1.00)
[2018-02-05] MEDS: SODIUM CHLORIDE 0.9% FLUSH 10 ML FLUSH IV FLUSH SCH ×2 (07:43→20:26)
[2018-02-05] MEDS: SODIUM CHLOR 0.9% 1000 ML INJ 1,000 ML IV SCH ×2 (07:43→15:59)
[2018-02-05 08:00] VITALS: BP 117/65; PULSE 72; RESP 16; TEMP 98.6; O2SAT 95
[2018-02-05] MEDS ORDERED: SODIUM CHLORIDE 0.9% INJ 50 ML ONE (08:04)
[2018-02-05] MEDS ORDERED: ceFAZolin INJ 1,000 MG VIAL ONE (08:04)
[2018-02-05] MEDS ORDERED: CHLORHEXIDINE GLUCONATE 2 % 1 PACK (2 CLOTHS) TOPICAL PRN (09:00)
[2018-02-05] MEDS ORDERED: INSULIN HUMAN REGULAR 1,000 UNITS/10 ML VIAL SQ PRN (09:00)
[2018-02-05] MEDS ORDERED: LACTATED RINGER'S 1000 ML IV PRN (09:00)
[2018-02-05] MEDS ORDERED: POVIDONE IODINE 5% (ANTISEPSIS KIT) 4 APPLICATIONS EACH NARE PRN (09:00)
[2018-02-05] MEDS ORDERED: METOPROLOL TARTRATE 25 MG TAB PO PRN (09:00)
[2018-02-05] MEDS ORDERED: SODIUM CHLORID 0.9% 500 ML IV PRN (09:00)
[2018-02-05 09:20] VITALS: PULSE 74
[2018-02-05] MEDS ORDERED: MIDAZOLAM HCL 2 MG/2 ML VIAL ONE (09:26)
--- NOTE | 2018-02-05 09:35 | MB ---
cc: Gabriel Peters DO DATE: 02/05/2018 DATE OF CONSULTATION: 02/05/2018. HISTORY OF PRESENT ILLNESS: Ms. Sheehan is a pleasant 47-year-old female with a history of stones. She had a CT scan over at [facility] demonstrating a 9 mm proximal right ureteral stone with hydronephrosis. She also had evidence of an atrophic left kidney. The patient was admitted and received pain control and was to be scheduled for cystoscopy with right double-J stent insertion. ALLERGIES: SHE HAS NO KNOWN DRUG ALLERGIES. MEDICATIONS: Refer to the chart. PAST MEDICAL HISTORY: Noted for nephrolithiasis. PAST SURGICAL HISTORY: Cholecystectomy, cystoscopy with lithotripsy and stent insertion, tubal ligation. SOCIAL HISTORY: She is a known smoker. Denies drinking or using drugs. FAMILY HISTORY: Noted for stones. REVIEW OF SYSTEMS: Note right flank pain with right abdominal pain, nausea and vomiting. Denies fever or chills. Denies gait disturbances, bleeding disorders, heat or cold intolerance. Denies skin lesions. Denies psychiatric problems. The remaining review of systems were reviewed and were negative. PHYSICAL EXAMINATION: VITAL SIGNS: She is presently afebrile. Vital signs are stable. GENERAL: She is a well-developed, well-nourished, 47-year-old female in no acute distress. HEENT: Normocephalic, atraumatic. Pupils equal, round, regular, reactive to light. Extraocular movements intact. NECK: Supple. HEART: Regular rate and rhythm. LUNGS: Clear. ABDOMEN: Soft. There is some right-sided tenderness with right CVA tenderness noted. : Normal female external genitalia. EXTREMITIES: Showing no cyanosis, clubbing, or edema. NEUROLOGIC: Cranial nerves 2-12 are intact. IMAGING STUDIES: Again, CT scan demonstrates a 9 mm proximal right ureteral stone. ASSESSMENT AND PLAN: This is a 47-year-old female with right-sided hydronephrosis due to a 9 mm proximal ureteral stone. We will plan for cystoscopy with right double-J stent insertion. Risks and benefits were discussed and she is willing to proceed. DO ZULAY Ling/KANG , 09:14 AM , 09:34 AM
--- NOTE | 2018-02-05 09:42 | MP ---
cc: Gabriel Peters DO DATE OF OPERATION: 02/05/2018 PREOPERATIVE DIAGNOSIS: 9 mm proximal right ureteral stone with hydronephrosis. POSTOPERATIVE DIAGNOSIS: 9 mm proximal right ureteral stone with hydronephrosis. PROCEDURE PERFORMED: Cystoscopy, right retrograde study and right double-J stent insertion. SURGEON: Gabriel Peters MD. ANESTHESIA: General LMA. FLUIDS: Approximately 1 liter of crystalloid. ESTIMATED BLOOD LOSS: No blood loss. DRAINS: A 6-Lithuanian, 22 cm right double-J stent. CONDITION: She tolerated the procedure well, was awoken and transferred to the recovery in stable condition. INDICATIONS: Bonny Sheehan is a 47-year-old female who presented to the [facility] with signs of a right-sided hydronephrosis with significant right flank pain due to a 9 mm proximal stone. Decision was made to bring the patient to the operating room to undergo cystoscopy and right double-J stent insertion. Risks and benefits were discussed preoperatively and the patient was willing to proceed. PROCEDURE NOTE: The patient was brought to the operating room, identified by myself as much Bonny Sheehan. She was placed in the dorsal lithotomy position, prepped and draped in the usual sterile fashion, received preprocedure antibiotics and general LMA anesthesia was administered, a 22-Lithuanian cystoscope was inserted into the bladder. Valdez-cystoscopy did not show any abnormalities. The 5-Lithuanian open-ended catheter was inserted into the right ureteral orifice and a retrograde pyelogram was performed demonstrating a large proximal stone in the proximal right ureter. The wire was able to be advanced into the collecting system and then an attempt was made to place the right double-J stent. This initially was unsuccessful due to lack of stiffness of the wire and due to her large stone. The wire and the stent was then removed and then an open-ended catheter was then inserted, again into the right ureteral orifice. An Amplatz Super Stiff wire was then passed up and beyond the stone. Once that was accomplished, I was able to pass a 22 cm, 6-Lithuanian, right double-J stent with a good curl in the kidney and in the bladder. The bladder was evacuated and she was awoken and transferred to the recovery room in stable condition. She will followup to undergo right extracorporeal shock wave lithotripsy in the future. GabrielDO ZULAY Moreno/JUAN MANUEL , 09:17 AM , 09:40 AM
[2018-02-05] MEDS ORDERED: ONDANSETRON HCL 4 MG/2 ML VIAL IV PUSH PRN (10:00)
[2018-02-05] MEDS ORDERED: MORPHINE SULFATE 2 MG/ML SYRINGE IV PRN (10:00)
[2018-02-05] MEDS ORDERED: IOHEXOL 350 MG/ML 50 ML BTL (for RAD DIAG) OTHER ONE (10:26)
[2018-02-05] MEDS: oxyCODONE/ACETAMINOPHEN 5 MG/325 MG TAB PO PRN ×2 (10:27→15:34)
[2018-02-05] MEDS: HYDROmorphone HCL PF 2 MG/ML VIAL IV PRN ×2 (11:27→14:33)
--- NOTE | 2018-02-05 11:30 | HHI.HP ---
[facility] Philip Fritz MD Admission Diagnosis Diagnoses: Chief Complaint: Kidney stone with pain Travel History International Travel<30 Days: No Contact w/Intl Traveler <30 Da: No Traveled to Known Affected Are: No History of Present Illness Patient is a 47-year-old female with history of multiple kidney stones and multiple lithotripsies. Patient did have some right-sided flank pain and had an CT and added pelvis which did show an 8-9 mm proximal right ureteral stone with hydronephrosis. Patient has atrophic left kidney. She was admitted to this hospital to see urology and did have lithotripsy with stent placement. She is seen now post procedurally and complaining of 10 out of 10 pain in the right upper quadrant after her procedure. She is ambulatory. Previously she had been taking multiple medications for pain however had discontinued this after a significant weight loss and lifestyle adjustment. Her pain has improved with morphine IV and the patient is recommended for further follow-up for pain management. Review of Systems Constitutional: DENIES: Diaphoretic episodes, Fatigue, Fever, Weight gain, Weight loss, Chills, Dizziness, Change in appetite, Night Sweats Endocrine: DENIES: Abnorml menstrual pattern, Heat/cold intolerance, Polydipsia , Polyuria, Polyphagia Eyes: DENIES: Blurred vision, Diplopia, Eye inflammation, Eye pain, Vision loss , Photosensitivity, Double Vision Ears, nose, mouth, throat: DENIES: Tinnitus, Hearing loss, Vertigo, Nasal discharge, Oral lesions, Throat pain, Hoarseness, Ear Pain, Running Nose, Epistaxis, Sinus Pain, Toothache, Odynophagia Respiratory: DENIES: Apneas, Cough, Snoring, Wheezing, Hemoptysis, Sputum production, Shortness of breath Cardiovascular: DENIES: Chest pain, Palpitations, Syncope, Dyspnea on Exertion , PND, Lower Extremity Edema, Orthopnea, Claudication Gastrointestinal: COMPLAINS OF: Abdominal pain, DENIES: Black stools, Bloody stools, Constipation, Diarrhea, Nausea, Vomiting, Difficulty Swallowing, Anorexia Genitourinary: DENIES: Abnormal vaginal bleeding, Dysmenorrhea, Dyspareunia, Sexual dysfunction, Urinary frequency, Urinary incontinence, Urgency, Hematuria , Dysuria, Nocturia, Vaginal discharge Musculoskeletal: DENIES: Joint pain, Muscle aches, Stiffness, Joint Swelling, Back pain, Neck pain Integumentary: DENIES: Abnormal pigmentation, Pruritus, Rash, Nail changes, Breast masses, Breast skin changes, Nipple discharge Hematologic/lymphatic: DENIES: Bruising, Lymphadenopathy Immunologic/allergic: DENIES: Eczema, Urticaria Neurologic: DENIES: Abnormal gait, Headache, Localized weakness, Paresthesias, Seizures, Speech Problems, Tremor, Poor Balance Psychiatric: DENIES: Anxiety, Confusion, Mood changes, Depression, Hallucinations, Agitation, Suicidal Ideation, Homicidal Ideation, Delusions Except as stated in HPI: all other systems reviewed are Neg Past Family Social History Past Medical History Renal stones Chronic pain Past Surgical History History of cholecystectomy, lithotripsy and stenting Reported Medications Reviewed in the EMR, patient denies any chronic medications Allergies: Coded Allergies: No Known Allergies (Unverified Allergy, Unknown, 02/05/18) Active Ordered Medications Reviewed in the EMR Family History Father had kidney stones and of multiple myeloma in his 80s Mother has rheumatoid arthritis Social History Patient smokes a half pack a day, lives with her family, occasional Physical Exam Vital Signs Vital Signs Date Time Temp Pulse Resp B/P (MAP) Pulse Ox O2 Delivery O2 Flow Rate FiO2 02/05/18 09:50 78 16 128/74 (92) 99 Room Air 02/05/18 09:20 74 02/05/18 09:20 97.9 74 14 128/74 (92) 99 Nasal Cannula 2 02/05/18 08:00 98.6 72 16 117/65 (82) 95 02/05/18 07:53 98.4 71 16 131/85 (100) 96 02/05/18 00:00 97.1 75 20 113/73 (86) 97 Physical Exam GENERAL: This is a well-nourished, well-developed patient, complaining of pain right upper quadrant SKIN: No rashes, ecchymoses or lesions. Cool and dry. HEAD: Atraumatic. Normocephalic. No temporal or scalp tenderness. EYES: Pupils equal round and reactive. Extraocular motions intact. No scleral icterus. No injection or drainage. ENT: Nose without bleeding, purulent drainage or septal hematoma. Throat without erythema, tonsillar hypertrophy or exudate. Uvula midline. Airway patent. NECK: Trachea midline. No JVD or lymphadenopathy. Supple, nontender, no meningeal signs. CARDIOVASCULAR: Regular rate and rhythm without murmurs, gallops, or rubs. RESPIRATORY: Clear to auscultation. Breath sounds equal bilaterally. No wheezes , rales, or rhonchi. GASTROINTESTINAL: Abdomen soft, non-tender, nondistended. No hepato-splenomegaly , or palpable masses. No guarding. MUSCULOSKELETAL: Extremities without clubbing, cyanosis, or edema. No joint tenderness, effusion, or edema noted. No calf tenderness. Negative Homans sign bilaterally. NEUROLOGICAL: Awake and alert. Cranial nerves II through XII intact. Motor and sensory grossly within normal limits. Five out of 5 muscle strength in all muscle groups. Normal speech. Laboratory Laboratory Tests Test 02/05/18 06:40 White Blood Count 6.1 Red Blood Count 4.00 Hemoglobin 11.7 Hematocrit 34.5 Mean Corpuscular Volume 86.3 Mean Corpuscular Hemoglobin 29.3 Mean Corpuscular Hemoglobin Concent 34.0 Red Cell Distribution Width 13.1 Platelet Count 185 Mean Platelet Volume 9.3 Neutrophils (%) (Auto) 66.4 Lymphocytes (%) (Auto) 24.3 Monocytes (%) (Auto) 7.7 Eosinophils (%) (Auto) 1.1 Basophils (%) (Auto) 0.5 Neutrophils # (Auto) 4.0 Lymphocytes # (Auto) 1.5 Monocytes # (Auto) 0.5 Eosinophils # (Auto) 0.1 Basophils # (Auto) 0.0 CBC Comment DIFF FINAL Differential Comment Blood Urea Nitrogen 17 Creatinine 1.20 Random Glucose 80 Calcium Level 9.4 Sodium Level 140 Potassium Level 4.1 Chloride Level 109 Carbon Dioxide Level 26.6 Anion Gap 4 Estimat Glomerular Filtration Rate 48 Result Diagram: 02/05/18 0640 02/05/[address] abdomen pelvis:. 8mm stone cluster has migrated out of the midpole collecting system of the right kidney and is now lodged at the UPJ resulting in hydronephrosis of the right kidney. Septic Shock Reassessment Septic shock perfusion: reassessment completed Assessment and Plan Problem List: (1) Kidney stones ICD Code: N20.0 - Calculus of kidney Status: Chronic Plan: Status post lithotripsy stent placement continue follow-up for fluids and pain management continue IV Dilaudid Follow-up x-ray Code Status Full code Regina Chacon MD Feb 05, 2018 11:30
[2018-02-05 12:00] VITALS: BP 125/80; PULSE 81; RESP 16; TEMP 97.5; O2SAT 97
--- NOTE | 2018-02-05 12:08 | RADRPT ---
EXAM DATE/TIME: 02/05/2018 11:32 [facility] COMPARISON: ABDOMEN KUB ONLY, December 15, 2015, 16:05. INDICATIONS : Right flank pain post cystoscopy with stent placement. MEDICAL HISTORY : Asthma. Nephrolithiasis. SURGICAL HISTORY : Tubal ligation. Cholecystectomy. ENCOUNTER: Subsequent ACUITY: 1 day PAIN SCORE: 10/10 LOCATION: Right flank FINDINGS: 2 supine frontal views of the abdomen demonstrate a right ureteral stent in place with the proximal a spect likely in the extrarenal pelvis or proximal ureter and the distal aspect overlying the urinary bladder. There is a stable 11 x 7 mm stone adjacent to the right proximal ureteral stent, likely in t he proximal ureter. Cholecystectomy clips are present. There is a nonobstructive bowel gas pattern. N o acute osseous abnormality is seen. CONCLUSION: 1. There is a stable 10 mm stone on the right side, likely within the extrarenal pelvis or proximal r ight ureter. 2. Right ureteral stent is present and the proximal aspect overlies the extrarenal pelvis and distal aspect overlies the urinary bladder. Kristopher Yi MD on February 05, 2018 at 12:04 Board Certified Radiologist. This report was verified electronically.
--- NOTE | 2018-02-05 14:52 | HHI.DCPOC ---
Discharge Care Plan Diagnosis: (1) Ureter obstruction Goals to Promote Your Health * To prevent worsening of your condition and complications * To maintain your health at the optimal level Directions to Meet Your Goals Take your medications as prescribed Follow your dietary instruction Follow activity as directed Keep your appointments as scheduled Take your immunizations and boosters as scheduled If your symptoms worsen call your PCP, if no PCP go to Urgent Care Center or Emergency Room Smoking is Dangerous to Your Health. Avoid second hand smoke Call the 24-hour hour crisis hotline for domestic abuse at Regina Chacon MD Feb 05, 2018 14:52
[2018-02-05] MEDS ORDERED: OXYC1TAB63 PO (14:53)
[2018-02-05] MEDS: REMOVE OLD PATCH T-DERMAL SCH (15:00)
[2018-02-05] MEDS: NICOTINE 7 MG/24 HR PATCH T-DERMAL SCH (15:31)
[2018-02-05 16:00] VITALS: BP 130/81; PULSE 70; RESP 16; TEMP 97.3; O2SAT 96
[2018-02-05] MEDS ORDERED: PILL SPLITTER OTHER PRN (17:15)
[2018-02-05] MEDS ORDERED: cefTRIAXone INJ 1,000 MG in SODIUM CHLORIDE 0.9% INJ 100 ML IV SCH (18:30)
[2018-02-05 20:00] VITALS: BP 163/94; PULSE 90; RESP 20; TEMP 99.3; O2SAT 95
[2018-02-05] MEDS: HYDROmorphone HCL 2 MG TAB PO PRN (22:31)
[2018-02-06] VITALS: BP 132/80; PULSE 84; RESP 20; TEMP 97.8; O2SAT 99
[2018-02-06] MEDS ORDERED: diphenhydrAMINE HCL 50 MG/ML VIAL IV PUSH ONE (01:00)
[2018-02-06] MEDS ORDERED: diphenhydrAMINE HCL 50 MG CAP PO PRN (01:00)
[2018-02-06 07:50] VITALS: BP 144/95; PULSE 80; RESP 20; TEMP 98.2; O2SAT 100
[2018-02-06] MEDS: REMOVE OLD PATCH T-DERMAL SCH (09:00)
[2018-02-06] MEDS: NICOTINE 7 MG/24 HR PATCH T-DERMAL SCH (09:01)
[2018-02-06] MEDS: SODIUM CHLORIDE 0.9% FLUSH 10 ML FLUSH IV FLUSH SCH (09:01)
[2018-02-06] MEDS: HYDROmorphone HCL 2 MG TAB PO PRN (09:01)
[2018-02-06] MEDS ORDERED: KETOROLAC TROMETHAMINE 30 MG/ML (IVP) VIAL IV PUSH ONE (10:00)
[2018-02-06] MEDS ORDERED: PROMETHAZINE HCL 25 MG TAB PO ONE (10:00)
[2018-02-06] MEDS ORDERED: AMOX500T2 PO (10:19)
--- NOTE | 2018-02-06 10:21 | HHI.DS ---
Discharge Summary Admission Date Feb 04, 2018 at 22:51 Discharge Date: Feb 06, 2018 Admitting Diagnosis (1) Kidney stones ICD Code: N20.0 - Calculus of kidney Status: Chronic Procedures Lithotripsy and stent placement for 8 mm right stone with obstruction Brief History - From Admission Patient is a 47-year-old female with history of multiple kidney stones and multiple lithotripsies. Patient did have some right-sided flank pain and had an CT and added pelvis which did show an 8-9 mm proximal right ureteral stone with hydronephrosis. Patient has atrophic left kidney. She was admitted to this hospital to see urology and did have lithotripsy with stent placement. She is seen now post procedurally and complaining of 10 out of 10 pain in the right upper quadrant after her procedure. She is ambulatory. Previously she had been taking multiple medications for pain however had discontinued this after a significant weight loss and lifestyle adjustment. Her pain has improved with morphine IV and the patient is recommended for further follow-up for pain management. CBC/BMP: 02/05/18 0640 02/05/18 0640 Significant Findings Laboratory Tests Test 02/05/18 06:40 Hematocrit 34.5 % (35.0-46.0) Creatinine 1.20 MG/DL (0.50-1.00) Chloride Level 109 MEQ/L (98-107) Anion Gap 4 MEQ/L (5-15) Estimat Glomerular Filtration Rate 48 ML/MIN (>89) Imaging Last Impressions Abdomen X-Ray 02/05/18 0000 Signed Impressions: Service Date/Time: Monday, February 05, 2018 11:32 - CONCLUSION: 1. There is a stable 10 mm stone on the right side, likely within the extrarenal pelvis or proximal right ureter. 2. Right ureteral stent is present and the proximal aspect overlies the extrarenal pelvis and distal aspect overlies the urinary bladder. Kristopher Yi MD PE at Discharge GENERAL: This is a well-nourished, well-developed patient, in no apparent distress. CARDIOVASCULAR: Regular rate and rhythm without murmurs, gallops, or rubs. RESPIRATORY: Clear to auscultation. Breath sounds equal bilaterally. No wheezes , rales, or rhonchi. GASTROINTESTINAL: Abdomen soft, non-tender, nondistended. Normal active bowel sounds MUSCULOSKELETAL: Extremities without clubbing, cyanosis, or edema. NEURO: Alert & Oriented x4 to person, place, time, situation. Moves all ext x4 Pt update on day of discharge Patient still awaiting of pain but would like to go home and continue symptom control for pain management. Hospital Course Patient seen and evaluated pain management post lithotripsy and stent placement Patient did well with IV narcotics and IV fluids She was found to have urinary tract infection and did well with antibiotics although she had some itching Pt Condition on Discharge: Good Discharge Disposition: Discharge Home Discharge Time: <= 30 minutes Discharge Instructions DIET: Follow Instructions for: As Tolerated, No Restrictions Activities you can perform: Regular-No Restrictions Follow up Referrals: Urology - 1 Week with Gabriel Peters DO New Medications: Amoxicillin-Clavulanate (Amoxicillin-Clavulanate) 500-125 mg Tab 500 MG PO TID for Infection, #10 TAB 0 Refills Oxycodone HCl/Acetaminophen (Oxycodone-Acetaminophen 5-325) 5 Mg-325 Mg Tablet 2 TAB PO Q6H PRN for PAIN SCALE 1 TO 10, #10 TAB Regina Chacon MD Feb 06, 2018 10:21
[2018-02-06 11:20] VITALS: BP 138/92; PULSE 63; RESP 20; TEMP 96.5; O2SAT 94
[2018-02-06 11:53] VITALS: RESP 18
[2018-02-13] MEDS ORDERED: CIPR250T52 PO (21:28)
[2018-02-13] MEDS ORDERED: COLA100C5 PO (21:28)
[2018-02-13] MEDS ORDERED: PERC10TA27 PO (21:28)
== END 2018-02-06 13:17 | disposition home or self-care (01) ==
LOC: PHEDDLT 22:41 → PH3B 22:51 → UNDOADMIN 22:52 → PHEDA 22:52
PROVIDERS: ADMIT Hospitalist; ATTEND Hospitalist
DX: N13.2 Hydronephrosis with renal and ureteral calculous obstruction (principal); N26.1 Atrophy of kidney (terminal); F17.210 Nicotine dependence, cigarettes, uncomplicated; N13.6 Pyonephrosis; N11.1 Chronic obstructive pyelonephritis; N39.0 Urinary tract infection, site not specified; E87.8 Other disorders of electrolyte and fluid balance, not elsewhere classified; Z16.20 Resistance to unspecified antibiotic; R79.89 Other specified abnormal findings of blood chemistry; R10.31 Right lower quadrant pain
CPT/HCPCS: 00910; 52332; 74018; 74176; 74420; 76000; 80048; 80053; 81001; 82550; 82552; 83690; 83735; 84484; 85025; 85610; 85730; 87077; 87086; 87186; 93005; 96361; 96365; 96375; 96376; 99285; C1769; C2617; G0378; J0690; J0696; J1170; J1200; J1885; J2250; J2270; J2405; J3010; J7030; Q0163; Q0169; Q9967

== ENCOUNTER → 2018-02-20 | Day surgery (SDC) | payer MEDICARE, OTHER ==
[~2018-02-20] VITALS: Ht 172.7 cm; Wt 97.3 kg
[~2018-02-20] MED LIST changes: +*MEPERIDINE 25 MG INJ VIAL PERIprocedural Use ONLY ONE; +*diphenhydrAMINE HCL 50 MG/ML VIAL PERIprocedural Use ONLY ONE; -ACETAMINOPHEN 325 MG TAB PO PRN; +AMOX500T2 PO; +ASPI81TA23 PO; +CHLORHEXIDINE GLUCONATE 2 % 1 PACK (2 CLOTHS) TOPICAL PRN; +CIPR250T52 PO; +COLA100C5 PO; -CYCL10TA PO; +DO NOT ADM ANY ANTICOAGULANT DRUGS PRN; +FAMOTIDINE 20 MG/2 ML VIAL IV PUSH ONE; +FAMOTIDINE 20 MG/2 ML VIAL ONE; -GABA300C5 PO; -IBUP1TAB5 PO; +INSULIN HUMAN REGULAR 1,000 UNITS/10 ML VIAL SQ PRN; +IOHEXOL 300 MG/ML 100 ML BTL (for Rad CT) OTHER ONE; +LACTATED RINGER'S 1000 ML IV PRN; +METOPROLOL TARTRATE 25 MG TAB PO PRN; +MORPHINE SULFATE 4 MG/ML INJ IV PUSH PRN; -NALOXONE HCL 0.4 MG/ML AMP IV PUSH PRN; +ONDANSETRON HCL 4 MG/2 ML VIAL IV PUSH PRN; -ONDANSETRON HCL 4 MG/2 ML VIAL IVP PRN; -OXYC-396 PO; +OXYC1TAB63 PO; -PANT40TA3 PO; +PERC10TA27 PO; -PERC5TAB12 PO; +POVIDONE IODINE 5% (ANTISEPSIS KIT) 4 APPLICATIONS EACH NARE PRN; +PROPOFOL 200 MG/20 ML AMP IV ONE; +SODIUM CHLORID 0.9% 500 ML IV PRN; -SODIUM CHLORIDE 0.9% FLUSH 10 ML FLUSH IV FLUSH PRN; +TIZA4CAP3 PO; +ceFAZolin 1,000 MG/NS 100 ML IV SCH; +ePHEDrine/NS 25 MG/5 ML SYRINGE IV ONE; +methylPREDNISolone SOD SUCC 125 MG/2 ML VIAL IV PUSH ONE; +methylPREDNISolone SOD SUCC 125 MG/2 ML VIAL ONE; +oxyCODONE/ACETAMINOPHEN 7.5 MG/325 MG TAB PO PRN
--- NOTE | 2018-02-20 08:19 | RADRPT ---
EXAM DATE/TIME: 02/20/2018 07:51 [place] COMPARISON: CT ABDOMEN & PELVIS W/O CONTRAST, February 13, 2018, 19:47. ABDOMEN KUB ONLY, February 05, 2018, 11:32. INDICATIONS : Pre op right lithotripsy. MEDICAL HISTORY : Hernia, hiatal. Renal calculi. Arthritis. Neuropathy. Chest pain. Asthma. GERD. Herniated lumbar disc s. Panic attack. Depression. Anxiety. Tobacco use. SURGICAL HISTORY : Cholecystectomy. Tubal ligation. Multiple lithrotripsies. ENCOUNTER: Initial ACUITY: 1 day PAIN SCORE: 0/10 LOCATION: Right flank FINDINGS: Supine view of the abdomen was performed. There is a right ureteral stent in place. The proximal asp ect of the stent appears to be in the UPJ upper ureter region. The distal aspect of the stent is in t he bladder. There is a 1 cm calcification seen adjacent to the proximal stent in the expected locatio n of the UPJ. There does appear to be a 4 mm stone projecting over the left kidney. The abdominal bow el gas pattern is normal. No abnormal masses, calcifications, or organomegaly is seen. There is dege nerative change of the lower lumbar spine. CONCLUSION: 1. 1 cm stone projecting over the right UPJ region adjacent to the right ureteral stent. 2. The proximal aspect of the right ureteral stent appears to be projecting over the UPJ upper ureter region. 3. Suspected small left stone. Kristopher Manzo MD on February 20, 2018 at 8:14 Board Certified Radiologist. This report was verified electronically.
--- NOTE | 2018-02-20 10:35 | PD.OP ---
Operative Report Date of Surgery: February 20, 2018 Preoperative Diagnosis: Right UPJ stone Postoperative Diagnosis: Same Procedure: Cystoscopy, right retrograde pyelogram, right double-J stent exchange, right extracorporeal shockwave lithotripsy Anesthesia: General LMA Surgeon: Gabriel Peters Merchant Seaman(s): None Resident Surgeon: None Operation and Findings: 47-year-old female with a history of a 1 cm right UPJ stone causing hydronephrosis. Patient was admitted approximately 2 weeks ago and underwent cystoscopy with right double-J stent insertion due to her significant right- sided hydronephrosis and a small left kidney. Decision was for patient to undergo cystoscopy with right double-J stent exchange as well as right extrapleural shockwave lithotripsy. Risk and benefits were discussed preoperatively she is willing to proceed. Patient was brought to the operating room and identified by myself as Bonny Sheehan. She was placed in the dorsal lithotomy position, prepped and draped in usual sterile fashion, received preprocedure antibiotics and general LMA anesthesia was administered. 22 [place] cystoscope was inserted into the bladder and the right ureteral stent was identified. Using the alligator grasper the stent was brought to the urethral meatus. A 0.3 sensor wire was then passed through the stent and the stent was then removed. The wire was approximately 3 cm beyond the stone. This was left in position while S wall therapy commenced. The patient then received a total of 2500 shocks up to a power level of 9. Good fragmentation of the stone was visualized under fluoroscopic imaging guidance. Once ESWL therapy completed, the cystoscope was then backloaded over the wire and a 6 Emirati 22 cm right double-J stent was placed over the wire. This time the stent was advanced further beyond the stone and in better position. The bladder was evacuated and she tolerated procedure well. She will follow-up in the office in 2 weeks and obtain a KUB x-ray prior to determine if there is any residual stone burden. She was awoken and transferred recovery room in stable condition. Gabriel Peters DO February 20, 2018 10:35
[2018-02-20 12:15] VITALS: BP 142/75; PULSE 72; RESP 18; TEMP 97.2; O2SAT 98
== END | disposition home or self-care (01) ==
LOC: HSDC 06:49
PROVIDERS: ATTEND Urology
DX: N13.2 Hydronephrosis with renal and ureteral calculous obstruction (principal); F32.9 Major depressive disorder, single episode, unspecified; F41.0 Panic disorder [episodic paroxysmal anxiety]; K21.9 Gastro-esophageal reflux disease without esophagitis; J45.909 Unspecified asthma, uncomplicated
CPT/HCPCS: 00873; 50590; 52332; 74018; C1769; C2617; J1200; J2175; J2930; J7120; Q9967

== ENCOUNTER → 2018-04-09 | Day surgery (SDC) | payer MEDICARE, OTHER ==
[~2018-04-09] VITALS: Ht 170.2 cm; Wt 91.6 kg
[~2018-04-09] MED LIST changes: -*MEPERIDINE 25 MG INJ VIAL PERIprocedural Use ONLY ONE; +*RESP: ALBUTEROL 2.5 MG/3 ML NEB (PRN) PERIprocedural Use ONLY NEB ONE; -*diphenhydrAMINE HCL 50 MG/ML VIAL PERIprocedural Use ONLY ONE; -AMOX500T2 PO; +AMPICILLIN 1 GM/NS 100 ML IV SCH; +BELLADONNA ALKALOIDS/OPIUM 60 MG SUPP RECTAL ONE; -CIPR250T52 PO; +DEXAMETHASONE SOD PHOS 4 MG/ML VIAL IV ONE; -FAMOTIDINE 20 MG/2 ML VIAL IV PUSH ONE; -FAMOTIDINE 20 MG/2 ML VIAL ONE; +FUROSEMIDE 40 MG/4 ML VIAL ONE; +GENTAMICIN INJ 240 MG in SODIUM CHLORIDE 0.9% INJ 100 ML IV SCH; +GLYCOPYRROLATE 1 MG/5 ML SYRINGE IV PUSH ONE; -INSULIN HUMAN REGULAR 1,000 UNITS/10 ML VIAL SQ PRN; -IOHEXOL 300 MG/ML 100 ML BTL (for Rad CT) OTHER ONE; +LIDOCAINE HCL 1% PF 5 ML SYRINGE OTHER ONE; +MIDAZOLAM HCL 2 MG/2 ML VIAL ONE; +MORPHINE SULFATE 4 MG/ML INJ IV PRN; -MORPHINE SULFATE 4 MG/ML INJ IV PUSH PRN; +NEOSTIGMINE 5 MG/5 ML SYRINGE IV PUSH ONE; +ONDANSETRON HCL 4 MG/2 ML VIAL IV ONE; -OXYC1TAB63 PO; +PHENYLEPH/NS 1000 MCG/10 ML SYR IV ONE; +ROCURONIUM INJ 50 MG/5 ML SYRINGE IV PUSH ONE; +SUGAMMADEX SODIUM 200 MG/2 ML VIAL IV PUSH ONE; -ceFAZolin 1,000 MG/NS 100 ML IV SCH; -methylPREDNISolone SOD SUCC 125 MG/2 ML VIAL IV PUSH ONE; -methylPREDNISolone SOD SUCC 125 MG/2 ML VIAL ONE; +oxyCODONE/ACETAMINOPHEN 5 MG/325 MG TAB PO PRN; -oxyCODONE/ACETAMINOPHEN 7.5 MG/325 MG TAB PO PRN
[2018-04-09 11:56] LABS: AUTOMATED NEUTROPHIL # 4.6 TH/MM3 (1.8-7.7); BASOPHIL % 0.5 % (0.0-2.0); EOSINOPHIL # 0.1 TH/MM3 (0-0.4); EOSINOPHIL % 1.3 % (0.0-4.0); HEMATOCRIT 29.5 % (35.0-46.0); HEMOGLOBIN 9.7 GM/DL (11.6-15.3); LYMPH % 18.8 % (9.0-44.0); LYMPHOCYTE # 1.2 TH/MM3 (1.0-4.8); MEAN CELL VOLUME 82.8 FL (80.0-100.0); MEAN CORPUSCULAR HEMOGLOBIN 27.3 PG (27.0-34.0); MEAN PLATELET VOLUME 8.6 FL (7.0-11.0); MONO % 6.7 % (0.0-8.0); MONOCYTE # 0.4 TH/MM3 (0-0.9); NEUT % 72.7 % (16.0-70.0); PLATELET COUNT 425 TH/MM3 (150-450); RED BLOOD COUNT 3.56 MIL/MM3 (4.00-5.30); RED CELL DISTRIBUTION WIDTH 14.6 % (11.6-17.2); WHITE BLOOD COUNT 6.3 TH/MM3 (4.0-11.0)
--- NOTE | 2018-04-09 13:47 | PD.OP ---
Operative Report Date of Surgery: Apr 09, 2018 Preoperative Diagnosis: Right renal and ureteral calculi with retained double-J stent Postoperative Diagnosis: Same Procedure: Cystoscopy, right ureteroscopy, laser lithotripsy, stone extraction, right retrograde pyelogram with right double-J stent exchange Anesthesia: LOUIS Surgeon: Gabriel Peters Supervisor Solder Making(s): None Resident Surgeon: None Operation and Findings: 47-year-old female with history of a 1 cm right proximal UPJ stone who underwent cystoscopy with right double-J stent insertion in the past followed by right extrapleural shockwave lithotripsy. The patient had a CT scan which demonstrated stone along the ureter as well as 2 small stones within the kidney. Decision made to bring the patient to the operating room to undergo cystoscopy with right ureteroscopy with laser lithotripsy and stone extraction with right double-J stent exchange. Risk and benefits were discussed preoperatively she is willing to proceed. Patient brought the operating room and identified by myself as Bonny Sheehan. She is placed in dorsal lithotomy position, prepped and draped in sterile fashion, received preprocedure antibiotics and general endotracheal tube anesthesia was administered. 22 Bahamian cystoscope was inserted into the bladder and the right ureteral stent was identified. Using the alligator grasper it was brought out to the urethral meatus. A 0.35 sensor wire was then passed through the stent and up into the proximal kidney. The rigid ureteroscope was then passed up the ureter and a 8 mm stone was identified in the proximal ureter. Using a 200 m laser fiber at a setting of 10 and 1000 the stone was fragmented up. The nitinol basket was then used to retrieve the residual stone fragments. Once the ureter was cleared the rigid ureteroscope was removed and then the flexible ureteroscope was then inserted. This was passed up the right ureter and into the collecting system where no residual stone fragments were identified. A right retrograde pyelogram was then performed through the scope. The scope was then removed and then the cystoscope was backloaded over the wire. A 6 Bahamian 22 cm right double-J stent was then placed over the wire with a good curl in the kidney and the bladder. The remaining string attached the stent was then taped to the symphysis pubis region. The bladder was evacuated and she was awoken and extubated and transferred recovery in stable condition. She will follow-up in the office in the A.M. to undergo stent pull. She tolerated procedure well. Gabriel Peters DO Apr 09, 2018 13:47
--- NOTE | 2018-04-09 14:42 | RADRPT ---
EXAM DATE: 04/09/2018 2:32 PM EDT AGE/SEX: 47 years / Female INDICATIONS: Stent removal, renal calculi lithotripsy, stent placement. CLINICAL DATA: This is the patient's initial encounter. Patient reports that signs and symptoms have been present for 1 day and indicates a pain score of Nonresponsive. MEDICAL/SURGICAL HISTORY: . Hernia, hiatal. Renal calculi. Arthritis. Neuropathy. Asthma. GERD. Herniated lumbar discs. . Cholecystectomy. Tubal ligation. Multiple lithotripsies COMPARISON: [facility], CT ABDOMEN & PELVIS W/O CONTRAST, 02/13/2018. . FINDINGS: Under sterile conditions and using aseptic technique positive contrast was injected into the ureter i n retrograde fashion by the ordering physician. There is hydronephrosis of the collecting system.. On the third film, there is a double-J ureteral stent in place in good position. CONCLUSION: Retrograde pyelogram examination as above. Electronically signed by: Jeyson Toth MD 04/09/2018 2:41 PM EDT
[2018-04-09 15:50] VITALS: BP 106/65; PULSE 88; RESP 16; TEMP 97.6; O2SAT 97
--- NOTE | 2018-04-16 16:16 | RADRPT ---
EXAM DATE: 04/09/2018 2:32 PM EDT AGE/SEX: 47 years / Female INDICATIONS: Stent removal, renal calculi lithotripsy, stent placement. CLINICAL DATA: This is the patient's initial encounter. Patient reports that signs and symptoms have been present for 1 day and indicates a pain score of Nonresponsive. MEDICAL/SURGICAL HISTORY: . Hernia, hiatal. Renal calculi. Arthritis. Neuropathy. Asthma. GERD. Herniated lumbar discs. . Cholecystectomy. Tubal ligation. Multiple lithotripsies COMPARISON: [facility], CT ABDOMEN & PELVIS W/O CONTRAST, 02/13/2018. . FINDINGS: Under sterile conditions and using aseptic technique positive contrast was injected into the ureter i n retrograde fashion by the ordering physician. There is hydronephrosis of the collecting system.. On the third film, there is a double-J ureteral stent in place in good position. CONCLUSION: Retrograde pyelogram examination as above. Electronically signed by: Jeyson Toth MD 04/16/2018 4:15 PM EDT
== END | disposition home or self-care (01) ==
LOC: HSDC 09:54
PROVIDERS: ATTEND Urology
DX: N20.2 Calculus of kidney with calculus of ureter (principal); J45.909 Unspecified asthma, uncomplicated; K21.9 Gastro-esophageal reflux disease without esophagitis; M19.90 Unspecified osteoarthritis, unspecified site; Z90.49 Acquired absence of other specified parts of digestive tract
CPT/HCPCS: 00918; 52356; 74420; 76000; 82365; 82370; 85025; 88300; 94664; C1769; C2617; J0290; J1100; J1580; J1940; J2250; J2270; J2370; J2405; J2710; J3010; J7120; J7613; 74450

== ENCOUNTER 2018-08-16 05:06 | Inpatient (IN) ==
[2018-08-16] MEDS ORDERED: Morphine Sulfate Inj 2 MG/ML Vial IV.PUSH PRN (11:50)
--- NOTE | 2018-08-16 11:53 | P.HP ---
History of Present Illness Primary Care Physician: Philip Fritz History of Present Illness: The patient is a 48-year-old female with past medical significant for multiple kidney stones and over 40 lithotripsies recent admission for an 9 mm proximal right ureteral stone with hydronephrosis and stent placement in January of this year. Patient is here because about an hour prior to admission started experiencing severe right flank pain and nausea. Pain is sharp, right flank, 10/10 in intensity, radiating to right lower abd quadrant/groin, pain is alleviating some after receiving pain meds. Patient reports associated nausea. Denies vomiting, diarrhea, fever, chills, constipation, dysuria, hematemesis, hematochezia, melena, hematuria, anorexia and syncope Inpatient Certification: I certify that the inpatient services were ordered in accordance with Medicare regulations governing the order. This includes certification that hospital inpatient services are reasonable and necessary and in the case of services not specified as inpatient-only under 42 CFR 419.22(n), that they are appropriately provided as inpatient services in accordance to with the 2-midnight benchmark under 43 CFR 412.3(e) Estimated Total Length of Stay (Days): 3 Plans for Post Hospital Care: Home Review of Systems All other systems reviewed negative except as stated in HPI PMFSH - History History Provided By: Patient - Medical History Medical History: Medical History (Last Reviewed 08/16/18 @ 11:57 by Lucía Cody MD) Kidney stones - Surgical History Surgical History: Surgical History (Last Reviewed 08/16/18 @ 11:57 by Lucía Cody MD) H/O lithotripsy - Family History Family History: Family History (Last Updated 08/16/18 @ 11:58 by Lucía Cody MD) Other Kidney stones - Tobacco History Second Hand Smoke Exposure: Yes Tobacco Use In Past 30 Days: Yes Smoking Status: Current every day smoker Tobacco Type: Cigarettes - Alcohol History How Often Do You Have a Drink Containing Alcohol: Monthly or less - Substance Use History Substance History: Active Abuse - Substance Use Type Marijuana Status: Active Route Used: Inhalation - Travel History Recent Travel in the [place] Within the Last 8 Weeks: Yes Recent Travel Out of the Country Within the Last 8 Weeks: No Medications and Allergies Active Medications: Active Medications Acetaminophen (Tylenol) 650 mg PO Q4H PRN PRN Reason: Temp > 100.4 Hydrocodone Bitart/Acetaminophen ([place] 5/325) 1 tab PO Q4H PRN PRN Reason: pain 2-4 Hydrocodone Bitart/Acetaminophen ([place] 10/325) 1 tab PO Q4H PRN PRN Reason: pain 5-10 Al Hydroxide/Mg Hydroxide (Milk Of Magnesia Liq) 30 ml PO Q12H PRN PRN Reason: Mild Constipation Bisacodyl (Dulcolax Supp) 10 mg RECTAL DAILY PRN PRN Reason: SEVERE CONSITIPATION Sodium Chloride (Ns Inj) 1,000 mls @ 150 mls/hr IV.CONT .Q6H40M TASIA Lactulose (Lactulose Liq) 30 ml PO DAILY PRN PRN Reason: SEVERE CONSITIPATION Morphine Sulfate (Morphine Inj) 2 mg IV.PUSH Q4H PRN PRN Reason: breakthrough pain/unable PO Ondansetron HCl (Zofran Inj) 4 mg IV.PUSH Q6H PRN PRN Reason: NAUSEA OR VOMITING Senna/Docusate Sodium (Sue-Colace) 1 tab PO BID [facility] Sennosides (Senokot) 17.2 mg PO Q12H PRN PRN Reason: Moderate Constipation Allergies Allergy/AdvReac Type Severity Reaction Status Date / Time No Known Allergies Allergy Verified 08/16/18 05:12 Home Medications Medication Instructions Recorded Confirmed Type tizanidine 2 mg PO DAILY 08/16/18 08/16/18 History Exam Vital signs: Vital Signs 08/16/18 11:49 Temperature 98.1 F Pulse Rate 67 Respiratory Rate 18 Blood Pressure 110/75 Pulse Oximetry 97 Intake & Output 08/15/18 08/16/18 08/16/18 18:59 06:59 18:59 Weight 92.986 kg Other: Weight On Admission 92.986 kg Narrative: GENERAL: Alert and oriented in mild distress due to pain. SKIN: Focused skin assessment warm/dry. HEAD: Atraumatic. Normocephalic. EYES: Pupils equal and round. No scleral icterus. No injection or drainage. ENT: No nasal bleeding or discharge. Mucous membranes pink and moist. NECK: Trachea midline. No JVD. CARDIOVASCULAR: Regular rate and rhythm. No murmur appreciated. RESPIRATORY: No accessory muscle use. Clear to auscultation. Breath sounds equal bilaterally. GASTROINTESTINAL: Abdomen soft, non-tender, nondistended. Hepatic and splenic margins not palpable. MUSCULOSKELETAL: Right CVA tenderness. No obvious deformities. No clubbing. No cyanosis. No edema. NEUROLOGICAL: Awake and alert. No obvious cranial nerve deficits. Motor grossly within normal limits. Normal speech. PSYCHIATRIC: Appropriate mood and affect; insight and judgment normal. Caprini VTE Risk Assessment Caprini VTE Risk Assessment: No/Low Risk (score <= 1) Caprini Risk Assessment Model: Point Value = 1 Point Value = 2 Point Value = 3 Point Value = 5 Age 41-60 Minor surgery BMI > 25 kg/m2 Swollen legs Varicose veins or History of unexplained or recurrent spontaneous Oral contraceptives or hormone replacement Sepsis (< 1 month) Serious lung disease, including pneumonia (< 1 month) Abnormal pulmonary function Acute myocardial infarction Congestive heart failure (< 1 month) History of inflammatory bowel disease Medical patient at bed rest Age 61-74 Arthroscopic surgery Major open surgery (> 45 min) Laparoscopic surgery (> 45 min) Malignancy Confined to bed (> 72 hours) Immobilizing plaster cast Central venous access Age >= 75 History of VTE Family history of VTE Factor V Leiden Prothrombin [id number] Lupus anticoagulant Anticardiolipin antibodies Elevated serum homocysteine Heparin-induced thrombocytopenia Other congenital or acquired thrombophilia Stroke (< 1 month) Elective arthroplasty Hip, pelvis, or leg fracture Acute spinal cord injury (< 1 month) Prophylaxis Regimen: Total Risk Factor Score Risk Level Prophylaxis Regimen 0-1 Low Early ambulation 2 Moderate Order ONE of the following: *Sequential Compression Device (SCD) *Heparin 5000 units SQ BID 3-4 Higher Order ONE of the following medications: *Heparin 5000 units SQ TID *Enoxaparin/Lovenox 40 mg SQ daily (WT < 150 kg, CrCl > 30 mL/min) *Enoxaparin/Lovenox 30 mg SQ daily (WT < 150 kg, CrCl > 10-29 mL/min) *Enoxaparin/Lovenox 30 mg SQ BID (WT < 150 kg, CrCl > 30 mL/min) AND/OR *Sequential Compression Device (SCD) 5 or more Highest Order ONE of the following medications: *Heparin 5000 units SQ TID (Preferred with Epidurals) *Enoxaparin/Lovenox 40 mg SQ daily (WT < 150 kg, CrCl > 30 mL/min) *Enoxaparin/Lovenox 30 mg SQ daily (WT < 150 kg, CrCl > 10-29 mL/min) *Enoxaparin/Lovenox 30 mg SQ BID (WT < 150 kg, CrCl > 30 mL/min) AND *Sequential Compression Device (SCD) Assessment and Plan - Plan Complicated UTI (urinary tract infection) with ureteral stone and hydronephrosis Ureteral stone with hydronephrosis DORINA (acute kidney injury) Abdomen/Pelvis CT done in [facility] reviewed shows 1. 6 mm obstructing stone in the mid to distal right ureter. There is hydronephrosis and enlargement of the right kidney, similar in severity to prior CT January 2018. 2. Stable configuration to the left kidney with atrophy and focal cortical thinning. Cultures sent in the eD [place] will follow results Start Rocephin IV abx Consult urology known to Dr Peters Pain meds per pain scale SCD/teds for DTV ppx Discussed with the patient, at bedside, nurse.
[2018-08-16] MEDS: Sod Chloride 0.9% Inj 1,000 ML IV.CONT SCH ×2 (12:45→20:10)
[2018-08-16] MEDS ORDERED: Acetaminophen 325 MG Tablet PO PRN (13:00)
[2018-08-16] MEDS ORDERED: Bisacodyl 10 MG Supp RECTAL PRN (13:00)
[2018-08-16] MEDS ORDERED: Morphine Inj 4 MG/ML Vial IV.PUSH ONE (14:24)
--- NOTE | 2018-08-16 14:31 | P.CONURO ---
History of Present Illness Service: Consult date: 08/16/18 Requesting Physician: Lucía Cody Reason for Consult: Right ureteral calculus Primary Care Provider: Philip Fritz Chief Complaint: Right flank pain History of Present Illness: 48-year-old female with history recurrent nephrolithiasis who has been under the care of my associate Dr. Peters and last treated for a right ureteral calculus back in January of this year who presents now to the emergency room with acute onset right flank pain. Patient reports that symptoms began early this morning and awoke her from sleep. Preliminary ER evaluation included a CT scan stone protocol that demonstrated marketed right hydroureteronephrosis and a 4-5 mm calculus involving the lower mid right ureter. Patient was admitted for pain control and a urology consult placed. At the time of consultation the patient reported her pain had improved but was still having symptoms. She also had associated nausea but no vomiting. Patient has been afebrile. Review of Systems All other systems reviewed negative except as stated in HPI PMFSH - History History Provided By: Patient - Medical History Medical History: Medical History (Last Reviewed 08/16/18 @ 13:34 by Minor Jerez) Kidney stones - Surgical History Surgical History: Surgical History (Last Reviewed 08/16/18 @ 13:34 by Minor Jerez) H/O lithotripsy - Family History Family History: Family History (Last Updated 08/16/18 @ 11:58 by Lucía Cody MD) Other Kidney stones - Tobacco History Second Hand Smoke Exposure: Yes Tobacco Use In Past 30 Days: Yes Smoking Status: Current every day smoker Tobacco Type: Cigarettes - Alcohol History How Often Do You Have a Drink Containing Alcohol: Monthly or less - Substance Use History Substance History: Active Abuse - Substance Use Type Marijuana Status: Active Route Used: Inhalation - Travel History Recent Travel in the [place] Within the Last 8 Weeks: Yes Recent Travel Out of the Country Within the Last 8 Weeks: No Medications and Allergies Active Medications: Active Medications Acetaminophen (Tylenol) 650 mg PO Q4H PRN PRN Reason: Temp > 100.4 Hydrocodone Bitart/Acetaminophen ([place] 5/325) 1 tab PO Q4H PRN PRN Reason: pain 2-4 Hydrocodone Bitart/Acetaminophen ([place] 10/325) 1 tab PO Q4H PRN PRN Reason: pain 5-10 Last Admin: 08/16/18 12:33 Dose: 1 tab Al Hydroxide/Mg Hydroxide (Milk Of Magnesia Liq) 30 ml PO Q12H PRN PRN Reason: Mild Constipation Bisacodyl (Dulcolax Supp) 10 mg RECTAL DAILY PRN PRN Reason: SEVERE CONSITIPATION Sodium Chloride (Ns Inj) 1,000 mls @ 150 mls/hr IV.CONT .Q6H40M TASIA Last Admin: 08/16/18 12:45 Dose: 150 mls/hr Ceftriaxone Sodium 1,000 mg/ (Sodium Chloride) 100 mls @ 200 mls/hr IV.SIG Q24H TASIA Ketorolac Tromethamine (Toradol Inj) 15 mg IV.PUSH Q6H PRN PRN Reason: if severe pain and not respond Lactulose (Lactulose Liq) 30 ml PO DAILY PRN PRN Reason: SEVERE CONSITIPATION Morphine Sulfate (Morphine Inj) 2 mg IV.PUSH Q4H PRN PRN Reason: breakthrough pain/unable PO Last Admin: 08/16/18 13:28 Dose: 2 mg Morphine Sulfate (Morphine Inj) 4 mg IV.PUSH ONCE ONE Stop: 08/16/18 14:25 Ondansetron HCl (Zofran Inj) 4 mg IV.PUSH Q6H PRN PRN Reason: NAUSEA OR VOMITING Senna/Docusate Sodium (Sue-Colace) 1 tab PO BID [place] Sennosides (Senokot) 17.2 mg PO Q12H PRN PRN Reason: Moderate Constipation Allergies Allergy/AdvReac Type Severity Reaction Status Date / Time No Known Allergies Allergy Verified 08/16/18 05:12 Home Medications Medication Instructions Recorded Confirmed Type tizanidine 2 mg PO DAILY 08/16/18 08/16/18 History Physical Exam Vital Signs - 24 hr 08/16/18 11:49 08/16/18 12:33 Temperature 98.1 F Pulse Rate 67 Respiratory Rate 18 20 Blood Pressure 110/75 Pulse Oximetry 97 Physical Exam: GENERAL: This is a well-nourished, well-developed patient, in no apparent distress. SKIN: No rashes, ecchymoses or lesions. Cool and dry. HEAD: Atraumatic. Normocephalic. No temporal or scalp tenderness. EYES: Pupils equal round and reactive. Extraocular motions intact. No scleral icterus. No injection or drainage. ENT: Nose without bleeding, purulent drainage or septal hematoma. Throat without erythema, tonsillar hypertrophy or exudate. Uvula midline. Airway patent. NECK: Trachea midline. No JVD or lymphadenopathy. Supple, nontender, no meningeal signs. CARDIOVASCULAR: Regular rate and rhythm without murmurs, gallops, or rubs. RESPIRATORY: Clear to auscultation. Breath sounds equal bilaterally. No wheezes , rales, or rhonchi. GASTROINTESTINAL: Abdomen soft, non-tender, nondistended. No hepato-splenomegaly , or palpable masses. No guarding. GENITOURINARY: No CVA tenderness, bladder not distended MUSCULOSKELETAL: Extremities without clubbing, cyanosis, or edema. No joint tenderness, effusion, or edema noted. No calf tenderness. Negative Homans sign bilaterally. NEUROLOGICAL: Awake and alert. Cranial nerves II through XII intact. Motor and sensory grossly within normal limits. Five out of 5 muscle strength in all muscle groups. Normal speech. Assessment and Plan - Assessment (1) Ureteral stone with hydronephrosis Code(s): N13.2 - Hydronephrosis with renal and ureteral calculous obstruction Status: Acute - Plan Urologic impression: 1. Obstructing 4-5 mm right mid to distal ureteral calculus 2. Right hydronephrosis related to obstructing calculus Recommendations: 1. Continue with analgesic support 2. Tamsulosin 0.4 mg by mouth daily 3. Strain all urine 4. Consider discharge home if pain well managed with oral medication
[2018-08-16] MEDS: Ketorolac Inj 30 MG/ML (IVP) Vial IV.PUSH PRN (19:29)
[2018-08-16] MEDS: Senna/Docusate Sodium 8.6/50 MG Tablet PO SCH (20:11)
[2018-08-16] MEDS: HYDROmorphone PF Inj 1 MG/ML Ampul IV.PUSH PRN (22:38)
[2018-08-17] MEDS: Sod Chloride 0.9% Inj 1,000 ML IV.CONT SCH ×5 (02:41→20:32)
[2018-08-17] MEDS: HYDROmorphone PF Inj 1 MG/ML Ampul IV.PUSH PRN ×6 (02:46→22:27)
[2018-08-17] MEDS: Senna/Docusate Sodium 8.6/50 MG Tablet PO SCH ×2 (08:12→20:32)
[2018-08-17 09:19] LABS: Baso % (Auto) 0.7 % (0.0-2.0); Eos # (Auto) 0.1 th/mm3 (0.0-0.4); Eos % (Auto) 1.4 % (0.0-4.0); Hematocrit 35.1 % (35.0-46.0); Hemoglobin 11.7 gm/dL (11.6-15.3); Lymph # (Auto) 1.6 th/mm3 (1.0-4.8); Lymph % (Auto) 40.7 % (9.0-44.0); Mean Corpuscular HGB Conc 33.5 % (32.0-36.0); Mean Corpuscular Hemoglobin 29.7 pg (27.0-34.0); Mean Corpuscular Volume 88.8 fL (80.0-100.0); Mean Platelet Volume 9.1 fL (7.0-11.0); Mono # (Auto) 0.3 th/mm3 (0.0-0.9); Mono % (Auto) 8.5 % (0.0-8.0); Neut # (Auto) 1.9 th/mm3 (1.8-7.7); Neut % (Auto) 48.7 % (16.0-70.0); Platelet Count 165 th/mm3 (150-450); Red Blood Count 3.95 mil/mm3 (4.00-5.30); Red Cell Distribution Width 14.2 % (11.6-17.2)
[2018-08-17 09:55] LABS: Calcium 9.2 mg/dL (8.5-10.1); Carbon Dioxide 24.8 meq/L (21.0-32.0); Potassium 3.9 meq/L (3.5-5.1)
--- NOTE | 2018-08-17 11:03 | P.PN ---
Subjective Interval history: Did not pass the stone. Still with significant pain. No fever ro chills. Nausea but able to eat and keep down some food. No appetite and not eating much. With hematuria, says urine is bloody - pink Physical Exam Vital signs: Vital Signs 08/16/18 11:49 08/16/18 12:33 08/16/18 16:32 Temperature 98.1 F 98.1 F Pulse Rate 67 61 Respiratory Rate 18 20 18 Blood Pressure 110/75 114/72 Pulse Oximetry 97 99 08/16/18 17:01 08/16/18 19:52 08/16/18 20:00 Temperature 97.8 F Pulse Rate 66 Respiratory Rate 16 16 16 Blood Pressure 121/70 Pulse Oximetry 97 08/17/18 00:00 08/17/18 04:00 08/17/18 07:26 Temperature 98.1 F 98.1 F 97.8 F Pulse Rate 59 L 55 L 49 L Respiratory Rate 18 16 16 Blood Pressure 131/80 158/85 H 122/69 Pulse Oximetry 96 98 08/17/18 08:11 08/17/18 09:13 Temperature Pulse Rate Respiratory Rate 18 18 Blood Pressure Pulse Oximetry Intake & Output 08/16/18 08/17/18 08/17/18 18:59 06:59 18:59 Intake Total 100 / 100 1999 1000 / 1000 Balance 100 / 100 1999 1000 / 1000 Weight 92.986 kg Intake: IV 100 / 100 1999 1000 / 1000 NS Inj 1,000 ML @ 150 mls/hr IV 1999 1000 / 1000 .CONT .Q6H40M [facility] Rx#:[id number] Rocephin Inj 1,000 MG In NS Inj 100 / 100 100 ML @ 200 mls/hr IV.SIG Q24H [facility] Rx#:[id number] Other: # Urine Diapers 2 Date of Last Bowel Movement 08/16/18 Weight On Admission 92.986 kg Narrative: GENERAL: Alert and oriented in mild distress due to pain. CARDIOVASCULAR: Regular rate and rhythm. No murmur appreciated. RESPIRATORY: No accessory muscle use. Clear to auscultation. Breath sounds equal bilaterally. GASTROINTESTINAL: Abdomen soft, non-tender, nondistended. Hepatic and splenic margins not palpable. MUSCULOSKELETAL: Right CVA tenderness. No obvious deformities. No clubbing. No cyanosis. No edema. NEUROLOGICAL: Awake and alert. No obvious cranial nerve deficits. Motor grossly within normal limits. Normal speech. PSYCHIATRIC: Appropriate mood and affect; insight and judgment normal. Results - Labs CBC & Chem 7: 08/17/18 08:10 08/17/18 08:10 Laboratory Results - last 24 hr 08/17/18 08/17/18 08:10 08:10 WBC 4.0 RBC 3.95 L Hgb 11.7 D Hct 35.1 MCV 88.8 MCH 29.7 MCHC 33.5 RDW 14.2 Plt Count 165 D MPV 9.1 Neut % (Auto) 48.7 Lymph % (Auto) 40.7 [place] % (Auto) 8.5 H Eos % (Auto) 1.4 Baso % (Auto) 0.7 Neut # (Auto) 1.9 Lymph # (Auto) 1.6 [place] # (Auto) 0.3 Eos # (Auto) 0.1 Baso # (Auto) 0.0 WBC Differential . Differential Comment Auto diff final Sodium 143 Potassium 3.9 Chloride 112 H Carbon Dioxide 24.8 Anion Gap 6 BUN 17 Creatinine 1.35 H Estimated GFR 42 L Random Glucose 77 Calcium 9.2 D Assessment and Plan - Plan Complicated UTI (urinary tract infection) with ureteral stone and hydronephrosis Ureteral stone with hydronephrosis DORINA (acute kidney injury) Abdomen/Pelvis CT done in [place] [facility] reviewed shows 1. 6 mm obstructing stone in the mid to distal right ureter. There is hydronephrosis and enlargement of the right kidney, similar in severity to prior CT January 2018. 2. Stable configuration to the left kidney with atrophy and focal cortical thinning. Cultures sent in the eD [place] will follow results Start Rocephin IV abx Consult urology known to Dr Peters Pain meds per pain scale SCD/teds for DTV ppx Discussed with the patient, at bedside, nurse.
[2018-08-17] MEDS: Ketorolac Inj 30 MG/ML (IVP) Vial IV.PUSH PRN (12:21)
--- NOTE | 2018-08-17 16:32 | P.PNURO ---
Subjective Patient symptoms today: Patient reports continued right lower abdominal pain that appears to be migrating in a caudad direction. Pain adequately controlled. Denies passing a stone as of yet. Objective Vital Signs: Vital Signs 08/16/18 16:32 08/16/18 17:01 08/16/18 19:52 Temperature 98.1 F 97.8 F Pulse Rate 61 66 Respiratory Rate 18 16 16 Blood Pressure 114/72 121/70 Pulse Oximetry 99 97 08/16/18 20:00 08/17/18 00:00 08/17/18 04:00 Temperature 98.1 F 98.1 F Pulse Rate 59 L 55 L Respiratory Rate 16 18 16 Blood Pressure 131/80 158/85 H Pulse Oximetry 96 98 08/17/18 07:26 08/17/18 08:11 08/17/18 09:13 Temperature 97.8 F Pulse Rate 49 L Respiratory Rate 16 18 18 Blood Pressure 122/69 Pulse Oximetry 08/17/18 12:00 08/17/18 12:21 08/17/18 16:00 Temperature 98.3 F 97.7 F Pulse Rate 54 L 63 Respiratory Rate 16 9 L 17 Blood Pressure 141/98 H 137/67 Pulse Oximetry 99 98 Intake & Output 08/16/18 08/17/18 08/17/18 18:59 06:59 18:59 Intake Total 100 / 100 1999 Balance 100 / 100 1999 Weight 92.986 kg Intake: IV 100 / 100 1999 NS Inj 1,000 ML @ 150 mls/hr IV 1999 .CONT .Q6H40M [facility] Rx#:[id number] Rocephin Inj 1,000 MG In NS Inj 100 / 100 100 / 100 100 ML @ 200 mls/hr IV.SIG Q24H [facility] Rx#:[id number] Other: # Urine Diapers 2 Date of Last Bowel Movement 08/16/18 Weight On Admission 92.986 kg Result Diagrams: 08/17/18 08:10 08/17/18 08:10 Other Results: No CVA tenderness Abdomen soft, nondistended, nontender Extremities well-perfused Medications and IVs: Active Medications Generic Name Dose Route Start Last Admin Trade Name Freq PRN Reason Stop Dose Admin Acetaminophen 650 mg 08/16/18 13:00 Tylenol PO Q4H PRN Temp > 100.4 Hydrocodone Bitart/Acetaminophen 1 tab 08/16/18 11:49 Presto 5/325 PO Q4H PRN pain 2-4 Hydrocodone Bitart/Acetaminophen 1 tab 08/16/18 11:49 08/17/18 12:21 Prest[place] 10/325 PO 1 tab Q4H PRN Administration pain 5-10 Al Hydroxide/Mg Hydroxide 30 ml 08/16/18 13:00 Milk Of Magnesia Liq PO Q12H PRN Mild Constipation Bisacodyl 10 mg 08/16/18 13:00 Dulcolax Supp RECTAL DAILY PRN SEVERE CONSITIPATION Hydromorphone HCl 1 mg 08/16/18 15:45 08/17/18 14:20 Dilaudid Pf Inj IV.PUSH 1 mg Q4H PRN Administration SEE LABEL COMMENTS Sodium Chloride 1,000 mls @ 150 mls/hr 08/16/18 12:00 08/17/18 14:44 Ns Inj IV.CONT 150 mls/hr .Q6H40M [facility] Administration Ceftriaxone Sodium 1,000 mg/ 100 mls @ 200 mls/hr 08/16/18 14:00 08/17/18 14: 58 Sodium Chloride IV.SIG Infused Q24H [facility] Infusion Ketorolac Tromethamine 15 mg 08/16/18 16:00 08/17/18 12:21 Toradol Inj IV.PUSH 08/21/18 15:59 15 mg Q6H PRN Administration SEE LABEL COMMENTS Lactulose 30 ml 08/16/18 11:47 Lactulose Liq PO DAILY PRN SEVERE CONSITIPATION Ondansetron HCl 4 mg 08/16/18 13:00 Zofran Inj IV.PUSH Q6H PRN NAUSEA OR VOMITING Senna/Docusate Sodium 1 tab 08/16/18 21:00 08/17/18 08:12 Sue-Colace PO 1 tab BID [facility] Administration Sennosides 17.2 mg 08/16/18 13:00 Senokot PO Q12H PRN Moderate Constipation Tamsulosin HCl 0.4 mg 08/16/18 15:00 08/17/18 08:11 Flomax PO 0.4 mg DAILY [facility] Administration Assessment and Plan - Assessment (1) Ureteral stone with hydronephrosis Code(s): N13.2 - Hydronephrosis with renal and ureteral calculous obstruction Status: Inactive - Plan Urologic impression: 1. Obstructing 4-5 mm right mid to distal ureteral calculus 2. Right hydronephrosis related to obstructing calculus Recommendations: 1. Continue with analgesic support 2. Tamsulosin 0.4 mg by mouth daily 3. Strain all urine 4. KUB in a.m. 5. Consider discharge home if pain well managed with oral medication
[2018-08-17] MEDS: Melatonin 5 MG Tablet PO PRN (21:47)
[2018-08-18] MEDS: HYDROmorphone PF Inj 1 MG/ML Ampul IV.PUSH PRN ×6 (02:33→23:59)
[2018-08-18] MEDS: Sod Chloride 0.9% Inj 1,000 ML IV.CONT SCH ×7 (03:13→20:00)
[2018-08-18 05:25] LABS: Baso % (Auto) 0.5 % (0.0-2.0); Eos # (Auto) 0.1 th/mm3 (0.0-0.4); Eos % (Auto) 1.4 % (0.0-4.0); Hematocrit 34.3 % (35.0-46.0); Hemoglobin 11.5 gm/dL (11.6-15.3); Lymph % (Auto) 43.7 % (9.0-44.0); Mean Corpuscular HGB Conc 33.6 % (32.0-36.0); Mean Corpuscular Hemoglobin 29.9 pg (27.0-34.0); Mean Platelet Volume 9.2 fL (7.0-11.0); Mono # (Auto) 0.4 th/mm3 (0.0-0.9); Mono % (Auto) 7.8 % (0.0-8.0); Neut # (Auto) 2.1 th/mm3 (1.8-7.7); Neut % (Auto) 46.6 % (16.0-70.0); Platelet Count 176 th/mm3 (150-450); Red Blood Count 3.85 mil/mm3 (4.00-5.30); Red Cell Distribution Width 13.5 % (11.6-17.2); White Blood Count 4.5 th/mm3 (4.0-11.0)
[2018-08-18 05:44] LABS: Calcium 9.3 mg/dL (8.5-10.1); Carbon Dioxide 25.3 meq/L (21.0-32.0); Potassium 4.2 meq/L (3.5-5.1)
[2018-08-18] MEDS: Senna/Docusate Sodium 8.6/50 MG Tablet PO SCH ×2 (08:43→20:03)
--- NOTE | 2018-08-18 10:16 | XR ---
EXAM DATE: 08/18/2018 10:09 AM EDT AGE/SEX: 48 years / Female INDICATIONS: Right abdominal pain. CLINICAL DATA: This is the patient's subsequent encounter. Patient reports that signs and symptoms h ave been present for 2 days and indicates a pain score of 8/10. MEDICAL/SURGICAL HISTORY: Hiatal hernia. Renal calculi. Cholecystectomy. Tubal ligation. Mult iple lithotripsies. COMPARISON: [facility], CT ABDOMEN & PELVIS W/O CONTRAST, 08/16/2018. . FINDINGS: 2 supine frontal views of the abdomen demonstrate a nonobstructive bowel gas pattern. Cholecystectom y clips overlie the right upper quadrant. There is a 4 x 4 mm density overlying the left mid abdomen and in the region of the left kidney. Recent CT documented this to represent a parenchymal stone vers us nonobstructing stone in an atrophic left kidney. The obstructing distal right ureteral stone docum ented on the prior study is not definitively seen on this examination. Ovoid density in the very infe rior pelvis corresponds with a phlebolith on prior CT. There is no organomegaly. Visualized lung base s are clear. The bones demonstrate no acute finding. CONCLUSION: No acute finding is identified. The obstructing 6 mm stone in the distal right ureter documented on t he CT from 2 days ago is not visualized on this examination. Therefore, it could have passed in the i nterval but also could be obscured by overlying structures. Electronically signed by: Kristopher Yi MD 08/18/2018 10:14 AM EDT
--- NOTE | 2018-08-18 12:05 | P.PNIM ---
Subjective Interval history: The patient says her pain was still an 8 out of 10. She does not think she passed the stone. She says her pain control is not strong enough. She says the Dilaudid does not last. Physical Exam Vital signs: Vital Signs 08/17/18 12:21 08/17/18 16:00 08/17/18 16:35 Temperature 97.7 F Pulse Rate 63 Respiratory Rate 9 L 17 16 Blood Pressure 137/67 Pulse Oximetry 98 08/17/18 17:05 08/17/18 19:05 08/17/18 20:00 Temperature 97.9 F Pulse Rate 70 Respiratory Rate 16 16 20 Blood Pressure 142/70 H Pulse Oximetry 98 08/17/18 20:32 08/17/18 21:02 08/17/18 22:57 Temperature Pulse Rate Respiratory Rate 18 18 18 Blood Pressure Pulse Oximetry 08/18/18 00:00 08/18/18 00:35 08/18/18 01:05 Temperature 97.8 F Pulse Rate 63 Respiratory Rate 20 17 20 Blood Pressure 148/81 H Pulse Oximetry 99 08/18/18 03:03 08/18/18 04:42 08/18/18 05:12 Temperature Pulse Rate Respiratory Rate 18 18 18 Blood Pressure Pulse Oximetry 08/18/18 08:00 Temperature 97.8 F Pulse Rate 59 L Respiratory Rate 17 Blood Pressure 139/73 Pulse Oximetry 99 Intake & Output 08/17/18 08/18/18 08/18/18 18:59 06:59 18:59 Intake Total 2099 / 2099 1850 / 1850 1000 / 1000 Output Total 700 / 700 Balance 2099 1150 / 1150 1000 / 1000 Weight 100.8 kg Intake: IV 2099 / 2099 1850 / 1850 1000 / 1000 NS Inj 1,000 ML @ 150 mls/hr IV 1999 / 1999 1850 / 1850 1000 / 1000 .CONT .Q6H40M [facility] Rx#:[id number] Rocephin Inj 1,000 MG In NS Inj 100 / 100 100 ML @ 200 mls/hr IV.SIG Q24H [facility] Rx#:[id number] Output: Urine 700 / 700 Other: Date of Last Bowel Movement 08/16/18 Narrative: GENERAL: No distress. HEENT: NC, AT. CARDIOVASCULAR: Regular rate and rhythm. No murmur appreciated. RESPIRATORY: No accessory muscle use. Clear to auscultation. Breath sounds equal bilaterally. GASTROINTESTINAL: Abdomen soft, nondistended. Tender in the RUQ. Hepatic and splenic margins not palpable. MUSCULOSKELETAL: Right CVA tenderness. No obvious deformities. No clubbing. No cyanosis. No edema. NEUROLOGICAL: Awake and alert. No obvious cranial nerve deficits. Motor grossly within normal limits. Normal speech. PSYCHIATRIC: Appropriate mood and affect; insight and judgment normal. Results - Labs CBC & Chem 7: 08/18/18 04:06 08/18/18 04:06 Laboratory Results - last 24 hr 08/18/18 08/18/18 04:06 04:06 WBC 4.5 RBC 3.85 L Hgb 11.5 L Hct 34.3 L MCV 89.0 MCH 29.9 MCHC 33.6 RDW 13.5 Plt Count 176 MPV 9.2 Neut % (Auto) 46.6 Lymph % (Auto) 43.7 [place] % (Auto) 7.8 Eos % (Auto) 1.4 Baso % (Auto) 0.5 Neut # (Auto) 2.1 Lymph # (Auto) 2.0 [place] # (Auto) 0.4 Eos # (Auto) 0.1 Baso # (Auto) 0.0 WBC Differential . Differential Comment Auto diff final Sodium 144 Potassium 4.2 Chloride 113 H Carbon Dioxide 25.3 Anion Gap 6 BUN 21 H Creatinine 1.49 H Estimated GFR 37 L Random Glucose 75 Calcium 9.3 - Imaging Impressions Abdomen X-Ray 08/18/18 00:00 CONCLUSION: No acute finding is identified. The obstructing 6 mm stone in the distal right ureter documented on the CT from 2 days ago is not visualized on this examination. Therefore, it could have passed in the interval but also could be obscured by overlying structures. Assessment and Plan - Plan Complicated UTI (urinary tract infection) with ureteral stone, hydronephrosis and DORINA Abdomen/Pelvis CT done in [place] [facility] reviewed shows: 1. 6 mm obstructing stone in the mid to distal right ureter. There is hydronephrosis and enlargement of the right kidney, similar in severity to prior CT January 2018. 2. Stable configuration to the left kidney with atrophy and focal cortical thinning. -Cultures sent in the eD [place] will follow results. -continue Rocephin IV. -Consulted urology. Recommendations appreciated. -Pain meds with a bowel regimen. -IVFs and avoid nephrotoxins. SCD/teds for DTV ppx Discharge Planning: Await improvement in pain control
--- NOTE | 2018-08-18 14:13 | P.PNURO ---
Subjective Patient symptoms today: Patient continues to complain of right lower abdominal pain. She denies passing a calculus Objective Vital Signs: Vital Signs 08/17/18 16:00 08/17/18 16:35 08/17/18 17:05 Temperature 97.7 F Pulse Rate 63 Respiratory Rate 17 16 16 Blood Pressure 137/67 Pulse Oximetry 98 08/17/18 19:05 08/17/18 20:00 08/17/18 20:32 Temperature 97.9 F Pulse Rate 70 Respiratory Rate 16 20 18 Blood Pressure 142/70 H Pulse Oximetry 98 08/17/18 21:02 08/17/18 22:57 08/18/18 00:00 Temperature 97.8 F Pulse Rate 63 Respiratory Rate 18 18 20 Blood Pressure 148/81 H Pulse Oximetry 99 08/18/18 00:35 08/18/18 01:05 08/18/18 03:03 Temperature Pulse Rate Respiratory Rate 17 20 18 Blood Pressure Pulse Oximetry 08/18/18 04:42 08/18/18 05:12 08/18/18 08:00 Temperature 97.8 F Pulse Rate 59 L Respiratory Rate 18 18 17 Blood Pressure 139/73 Pulse Oximetry 99 08/18/18 12:00 Temperature 97.7 F Pulse Rate 64 Respiratory Rate 17 Blood Pressure 140/65 Pulse Oximetry 96 Intake & Output 08/17/18 08/18/18 08/18/18 18:59 06:59 18:59 Intake Total 2100 / 2100 1850 / 1850 1000 / 1000 Output Total 700 / 700 Balance 2099 / 2099 1150 / 1150 1000 / 1000 Weight 100.8 kg Intake: IV 2099 / 2099 1850 / 1850 1000 / 1000 NS Inj 1,000 ML @ 150 mls/hr IV 1999 / 1999 1850 / 1850 1000 / 1000 .CONT .Q6H40M [facility] Rx#:[id number] Rocephin Inj 1,000 MG In NS Inj 100 / 100 100 ML @ 200 mls/hr IV.SIG Q24H [facility] Rx#:[id number] Output: Urine 700 / 700 Other: Date of Last Bowel Movement 08/16/18 Result Diagrams: 08/18/18 04:06 08/18/18 04:06 Other Results: Abdomen soft, nondistended, nontender Bladder not distended No CVA tenderness Extremities well-perfused, nontender Imaging: Impressions Abdomen X-Ray 08/18/18 00:00 CONCLUSION: No acute finding is identified. The obstructing 6 mm stone in the distal right ureter documented on the CT from 2 days ago is not visualized on this examination. Therefore, it could have passed in the interval but also could be obscured by overlying structures. Medications and IVs: Active Medications Generic Name Dose Route Start Last Admin Trade Name Freq PRN Reason Stop Dose Admin Acetaminophen 650 mg 08/16/18 13:00 Tylenol PO Q4H PRN Temp > 100.4 Hydrocodone Bitart/Acetaminophen 1 tab 08/16/18 11:49 08/18/18 08:43 [place] 10/325 PO 1 tab Q4H PRN Administration pain 3-6 Al Hydroxide/Mg Hydroxide 30 ml 08/16/18 13:00 Milk Of Magnesia Liq PO Q12H PRN Mild Constipation Bisacodyl 10 mg 08/16/18 13:00 Dulcolax Supp RECTAL DAILY PRN SEVERE CONSITIPATION Hydromorphone HCl 1 mg 08/16/18 15:45 08/18/18 10:33 Dilaudid Pf Inj IV.PUSH 1 mg Q4H PRN Administration BREAKTHROUGH PAIN Sodium Chloride 1,000 mls @ 150 mls/hr 08/16/18 12:00 08/18/18 08:42 Ns Inj IV.CONT 150 mls/hr .Q6H40M [facility] Administration Ceftriaxone Sodium 1,000 mg/ 100 mls @ 200 mls/hr 08/16/18 14:00 08/17/18 14: 58 Sodium Chloride IV.SIG Infused Q24H [facility] In[facility] Ketorolac Tromethamine 15 mg 08/16/18 16:00 08/17/18 12:21 Toradol Inj IV.PUSH 08/21/18 15:59 15 mg Q6H PRN Administration SEE LABEL COMMENTS Lactulose 30 ml 08/16/18 11:47 Lactulose Liq PO DAILY PRN SEVERE CONSITIPATION Melatonin 5 mg 08/17/18 21:02 08/17/18 21:47 Melatonin PO 5 mg HS PRN Administration INSOMNIA Ondansetron HCl 4 mg 08/16/18 13:00 Zofran Inj IV.PUSH Q6H PRN NAUSEA OR VOMITING Oxycodone HCl 15 mg 08/18/18 11:58 08/18/18 12:46 Roxicodone PO 15 mg Q4H PRN Administration pain 7-10 Senna/Docusate Sodium 1 tab 08/16/18 21:00 08/18/18 08:43 Sue-Colace PO 1 tab BID [facility] Administration Sennosides 17.2 mg 08/16/18 13:00 Senokot PO Q12H PRN Moderate Constipation Tamsulosin HCl 0.4 mg 08/16/18 15:00 08/18/18 08:43 Flomax PO 0.4 mg DAILY [facility] Administration Assessment and Plan - Assessment (1) Ureteral stone with hydronephrosis Code(s): N13.2 - Hydronephrosis with renal and ureteral calculous obstruction Status: Inactive - Plan Urologic impression: 1. Obstructing 4-5 mm right mid to distal ureteral calculus 2. Right hydronephrosis related to obstructing calculus Recommendations: 1. Continue with analgesic support 2. Tamsulosin 0.4 mg by mouth daily 3. Strain all urine 4. N.p.o. after midnight 5. We will place the patient on the OR schedule for tomorrow to include cystoscopy, right retrograde pyelogram, right ureteroscopy with laser lithotripsy and possible right stent placement. Risks and benefits discussed.
[2018-08-18] MEDS: Melatonin 5 MG Tablet PO PRN (21:05)
[2018-08-19] MEDS: Sod Chloride 0.9% Inj 1,000 ML IV.CONT SCH ×3 (02:41→08:15)
[2018-08-19] MEDS ORDERED: Chlorhexidine Gluconate 2% 1 Pack (2 Cloths) TOPICAL ONE ×2 (03:30→11:08)
[2018-08-19] MEDS: HYDROmorphone PF Inj 1 MG/ML Ampul IV.PUSH PRN ×2 (04:04→08:13)
[2018-08-19] MEDS: Senna/Docusate Sodium 8.6/50 MG Tablet PO SCH (08:13)
[2018-08-19 10:50] LABS: Calcium 8.9 mg/dL (8.5-10.1); Carbon Dioxide 23.3 meq/L (21.0-32.0); Potassium 4.2 meq/L (3.5-5.1)
[2018-08-19] MEDS ORDERED: Dextrose 5%/NaCl 0.45% Inj 1,000 ML IV.CONT SCH (11:00)
--- NOTE | 2018-08-19 11:01 | P.PNIM ---
Subjective Interval history: The patient said that she was still quite painful. She has not been able to eat much. She says her procedure was scheduled for this afternoon. She was hoping to go home after that if her pain was better controlled. Physical Exam Vital signs: Vital Signs 08/18/18 12:00 08/18/18 16:00 08/18/18 20:00 Temperature 97.7 F 97.5 F L 97.9 F Pulse Rate 64 61 61 Respiratory Rate 17 17 18 Blood Pressure 140/65 145/69 H 153/78 H Pulse Oximetry 96 100 98 08/18/18 20:33 08/18/18 21:35 08/19/18 00:00 Temperature 97.8 F Pulse Rate 55 L Respiratory Rate 18 20 18 Blood Pressure 142/83 H Pulse Oximetry 97 08/19/18 00:29 08/19/18 02:29 08/19/18 04:34 Temperature Pulse Rate Respiratory Rate 18 18 20 Blood Pressure Pulse Oximetry 08/19/18 08:00 Temperature 97.6 F Pulse Rate 62 Respiratory Rate 18 Blood Pressure 157/78 H Pulse Oximetry 99 Intake & Output 08/18/18 08/19/18 08/19/18 18:59 06:59 18:59 Intake Total 1340 / 1340 1000 / 1000 1000 / 1000 Balance 1340 / 1340 1000 / 1000 1000 / 1000 Weight 105.3 kg Intake: IV 1100 / 1100 1000 / 1000 1000 / 1000 NS Inj 1,000 ML @ 150 mls/hr IV 1000 / 1000 1000 / 1000 1000 / 1000 .CONT .Q6H40M [facility] Rx#:[id number] Rocephin Inj 1,000 MG In NS Inj 100 / 100 100 ML @ 200 mls/hr IV.SIG Q24H [facility] Rx#:[id number] Oral 240 / 240 Other: # Voids 5 2 Date of Last Bowel Movement 08/16/18 08/18/18 # Bowel Movements 2 Narrative: GENERAL: No distress. HEENT: NC, AT. CARDIOVASCULAR: Regular rate and rhythm. No murmur appreciated. RESPIRATORY: No accessory muscle use. Clear to auscultation. Breath sounds equal bilaterally. GASTROINTESTINAL: Abdomen soft, nondistended. Tender in the RUQ. Hepatic and splenic margins not palpable. MUSCULOSKELETAL: Right CVA tenderness. No obvious deformities. No clubbing. No cyanosis. No edema. NEUROLOGICAL: Awake and alert. No obvious cranial nerve deficits. Motor grossly within normal limits. Normal speech. PSYCHIATRIC: Appropriate mood and affect; insight and judgment normal. Results - Labs CBC & Chem 7: 08/18/18 04:06 08/19/18 06:47 Laboratory Results - last 24 hr 08/19/18 06:47 Sodium 143 Potassium 4.2 Chloride 113 H Carbon Dioxide 23.3 Anion Gap 7 BUN 17 Creatinine 1.23 H Estimated GFR 46 L Random Glucose 69 L Calcium 8.9 Assessment and Plan - Plan Complicated UTI (urinary tract infection) with ureteral stone, hydronephrosis and DORINA Abdomen/Pelvis CT done in [place] ER reviewed shows: 1. 6 mm obstructing stone in the mid to distal right ureter. There is hydronephrosis and enlargement of the right kidney, similar in severity to prior CT January 2018. 2. Stable configuration to the left kidney with atrophy and focal cortical thinning. No growth in urine culture. -continue Rocephin IV for now. Likely d/c antibiotics at discharge. -Consulted urology. Recommendations appreciated. Cystoscopy, right retrograde pyelogram, right ureteroscopy with laser lithotripsy and possible right stent placement scheduled 08/19. -Pain meds with a bowel regimen. -IVFs and avoid nephrotoxins. Hypoglycemia Secondary to decreased p.o. intake. -Change IV fluids to D5 half-normal saline. -Advance diet as tolerated following procedure. PPx: SCD/teds Discharge Planning: Pending urology procedure
[2018-08-19] MEDS ORDERED: Metoprolol Tartrate 25 MG Tablet PO ONE (11:08)
[2018-08-19] MEDS ORDERED: Neostigmine Inj 5 MG/5 ML Syringe IV.PUSH ONE (11:44)
[2018-08-19] MEDS ORDERED: Glycopyrrolate Inj 1 MG/5 ML Syringe IV.PUSH ONE (11:44)
[2018-08-19] MEDS ORDERED: Sodium Chlor 0.9% Inj 500 ML IV.SIG SCH (12:00)
--- NOTE | 2018-08-19 12:53 | P.OP ---
- Preoperative Diagnosis (1) Ureteral calculus, right - Postoperative Diagnosis (1) Ureteral calculus, right Date of procedure: 08/19/18 Procedure: Cystoscopy, right retrograde pyelogram, right ureteroscopy and placed in the right ureteral catheter Anesthesia: MAC Surgeon: Robert Rogers MD Estimated blood loss (mL): 0 Pathology: none sent Operation and Findings: Indication for procedures: Case of a pleasant 48-year-old female with recent development of right flank pain. Workup included a CT scan that demonstrated a 4-5 mm right mid to distal ureteral calculus. Patient reports ongoing right flank pain despite a negative follow-up KUB study. She presents now for further urologic management to include cystoscopy, right retrograde pyelogram and right ureteroscopy. Operative procedure in detail: Patient was brought to the operating room suite and placed supine on the cystoscopy table. She was then placed under general anesthesia. She was then repositioned in the dorsal lithotomy position and prepped and draped in normal sterile fashion. After an appropriate timeout was undertaken I proceeded with cystoscopic evaluation utilizing the rigid cystoscope with the 20 Haitian sheath and the 30 degree lens. Both right and left ureteral orifices were in correct anatomic position draining clear yellow urine. I then proceeded to pass a sensor 0.035 wire up the patient's ureter under fluoroscopic guidance and no ureteral stones were seen. A 6 Haitian open- ended ureteral catheter was advanced up the wire several centimeters and the wire withdrawn. A retrograde Polygram study was then performed that failed to demonstrate any right ureteral or renal stones. The catheter was withdrawn and there was prompt drainage of contrast. I reintroduced the sensor wire and easily advance it up into the right renal pelvis. The cystoscope was then withdrawn and the wire secured to a sterile drape with hemostat. The self dilating ureteroscope was then easily advanced up the patient's right ureter up to the right renal pelvis and no stones were seen. The entire ureter was dilated consistent with recent stone passage. The ureteroscope was withdrawn and the cystoscope reintroduced with the wire backloaded. A 6 Haitian open- ended ureteral catheter was then advanced up the wire 25 cm in a cephalad direction and the wire was withdrawn. The cystoscope was then withdrawn and a 16 Haitian 10 cc Melchor catheter was placed. The patient tolerated the procedures without complications and was transferred to the PACU in satisfactory condition.
[2018-08-19] MEDS ORDERED: fentaNYL Citrate Inj 100 MCG/2 ML Ampul ONE (13:02)
[2018-08-19] MEDS ORDERED: Sodium Chloride 0.9% 2 ML Flush PRN IV.FLUSH (13:35)
[2018-08-19] MEDS ORDERED: Iohexol Inj 350 MG/ML 100 ML Bottle (for RAD Diag) IVCONTRAST ONE (14:14)
[2018-08-19 17:35] VITALS: BP 141/83; PULSE 66; RESP 18; TEMP 97.2; O2SAT 96
--- NOTE | 2018-08-19 17:58 | P.DS ---
Date of admission: 08/16/18 09:01 Primary care physician: Philip Fritz Anticipated date of discharge: 08/19/18 Brief History from admission: The patient is a 48-year-old female with past medical significant for multiple kidney stones and over 40 lithotripsies recent admission for an 9 mm proximal right ureteral stone with hydronephrosis and stent placement in January of this year. Patient is here because about an hour prior to admission started experiencing severe right flank pain and nausea. Pain is sharp, right flank, 10/10 in intensity, radiating to right lower abd quadrant/groin, pain is alleviating some after receiving pain meds. Patient reports associated nausea. Denies vomiting, diarrhea, fever, chills, constipation, dysuria, hematemesis, hematochezia, melena, hematuria, anorexia and syncope DS: Diagnosis - Discharge Diagnosis (1) Ureteral calculus, right Status: Acute DS: Summary Hospital Course: Ureteral stone/Hydronephrosis/DORINA Abdomen/Pelvis CT done in [facility] reviewed showed: 1. 6 mm obstructing stone in the mid to distal right ureter. There is hydronephrosis and enlargement of the right kidney, similar in severity to prior CT January 2018. 2. Stable configuration to the left kidney with atrophy and focal cortical thinning. No growth in urine culture. The pt received IV ceftriaxone. We consulted urology. Flomax was started. KUB negative for stone. S/p Cystoscopy, right retrograde pyelogram, right ureteroscopy and right ureteral catheter . She received pain meds and IVFs. She was cleared for discharge by urology. She will follow up with urology as an outpt. - Time Spent with Patient Total time spent providing and/or coordinating discharge services: Less than 30 minutes - Quality: VTE Deep Vein Thrombosis/Pulmonary Embolism Present on Admission: No Exam Vital signs: Vital Signs 08/18/18 20:00 08/18/18 20:33 08/18/18 21:35 Temperature 97.9 F Pulse Rate 61 Respiratory Rate 18 18 20 Blood Pressure 153/78 H Pulse Oximetry 98 08/19/18 00:00 08/19/18 00:29 08/19/18 02:29 Temperature 97.8 F Pulse Rate 55 L Respiratory Rate 18 18 18 Blood Pressure 142/83 H Pulse Oximetry 97 08/19/18 04:34 08/19/18 08:00 08/19/18 12:54 Temperature 97.6 F 97.6 F Pulse Rate 62 100 H Respiratory Rate 20 18 12 Blood Pressure 157/78 H 135/62 Pulse Oximetry 99 97 08/19/18 13:00 08/19/18 13:15 08/19/18 13:25 Temperature Pulse Rate 83 63 Respiratory Rate 13 14 Blood Pressure 115/59 L 129/71 Pulse Oximetry 97 95 98 08/19/18 13:27 08/19/18 16:00 Temperature 97.6 F 97.2 F L Pulse Rate 55 L 66 Respiratory Rate 15 18 Blood Pressure 129/80 141/83 H Pulse Oximetry 97 96 Intake & Output 08/18/18 08/19/18 08/19/18 18:59 06:59 18:59 Intake Total 1340 / 1340 1000 / 1000 1600 / 1600 Output Total 7 / 7 Balance 1340 / 1340 1000 / 1000 1593 / 1593 Weight 105.3 kg Intake: IV 1100 / 1100 1000 / 1000 1600 / 1600 NS Inj 1,000 ML @ 150 mls/hr IV 1000 / 1000 1000 / 1000 1600 / 1600 .CONT .Q6H40M [facility] Rx#:[id number] Rocephin Inj 1,000 MG In NS Inj 100 / 100 100 ML @ 200 mls/hr IV.SIG Q24H [facility] Rx#:[id number] Oral 240 / 240 Output: Estimated Blood Loss 5 / 5 Urine Amount (Catheter) 2 / 2 Indwelling Urethral Catheter 2 / 2 Other: # Voids 5 2 Date of Last Bowel Movement 08/16/18 08/18/18 # Bowel Movements 2 Narrative: GENERAL: No distress. HEENT: NC, AT. CARDIOVASCULAR: Regular rate and rhythm. No murmur appreciated. RESPIRATORY: No accessory muscle use. Clear to auscultation. Breath sounds equal bilaterally. GASTROINTESTINAL: Abdomen soft, nondistended. Tender in the RUQ. Hepatic and splenic margins not palpable. MUSCULOSKELETAL: Right CVA tenderness. No obvious deformities. No clubbing. No cyanosis. No edema. NEUROLOGICAL: Awake and alert. No obvious cranial nerve deficits. Motor grossly within normal limits. Normal speech. PSYCHIATRIC: Appropriate mood and affect; insight and judgment normal. Results Procedures completed during hospitalization: See hospital course Labs on day of discharge: Labs from last 24 hours 08/19/18 06:47 Sodium 143 Potassium 4.2 Chloride 113 H Carbon Dioxide 23.3 Anion Gap 7 BUN 17 Creatinine 1.23 H Estimated GFR 46 L Random Glucose 69 L Calcium 8.9 - Impressions ITS Impressions Abdomen X-Ray 08/18/18 00:00 CONCLUSION: No acute finding is identified. The obstructing 6 mm stone in the distal right ureter documented on the CT from 2 days ago is not visualized on this examination. Therefore, it could have passed in the interval but also could be obscured by overlying structures. Discharge Plan - Discharge Disposition Patient Disposition: 01 Discharge Home - Discharge Condition Condition: Stable - Discharge Order Discharge Orders: Discharge Order (Routine); Ordered 08/19/18 Ordered By: Mehul García Urology Clear for Discharge (Routine); Ordered 08/19/18 Ordered By: Robert Rogers - Discharge Details Anticipated Discharge Date: 08/19/18 - Physicians Team Primary Care Provider: Philip Fritz Attending Provider: Mehul García Other Providers: Robert Rogers MD - Rxs /Orders / Referrals /Forms Prescriptions: Continue tizanidine 2 mg Capsule 2 mg PO DAILY Referrals: Philip Fritz MD [Primary Care Provider] - See Instructions (1 week) Robert Rogers MD [UROLOGY] - See Instructions (1 week)
[2018-08-19] MEDS ORDERED: Sodium Chloride 0.9% 2 ML Flush BID IV.FLUSH SCH (21:00)
== END 2018-08-19 18:44 | disposition home or self-care (01) ==
LOC: NEDDLT 05:06 → NEDA 09:01 → NEPGCP 09:24 → N07 08-17 15:24
PROVIDERS: ADMIT Hospitalist; ATTEND Hospitalist